=== PATIENT | female | born 1950 | race Caucasian/White ===

== ENCOUNTER → 2016-08-11 | Outpatient (CLI) | payer MEDICARE ==
--- NOTE | 2016-08-11 12:31 | REP ---
Clinical: Lower back pain. Technique: AP, lateral, bilateral oblique, and coned-down views. Findings: Alignment and lordosis is maintained. Moderate multilevel degenerative changes include anterior spurring/osteophyte formation, endplate sclerosis with minimal disc space narrowing and hypertrophic facet changes. There is no evidence for acute fracture / compression as a or subluxation. No evidence for spondylolysis or spondylolisthesis. Impression: Moderate multilevel degenerative changes. Signed by Andrew Moreira MD 08/11/2016 12:24 P
== END ==
LOC: M ADAMS 11:52
PROVIDERS: ATTEND Physician Assistant Medical
DX: M54.5 Low back pain (principal)

== ENCOUNTER → 2016-09-12 | Outpatient (REF) | payer MEDICARE ==
[2016-09-12 12:25] LABS: MEAN CORPUSCULAR HEMOGLOBIN 32.6 pg (27.0-33.0); MEAN CORPUSCULAR HGB CONC 34.4 g/dl (32.0-36.5); MEAN CORPUSCULAR VOLUME 94.7 fl (80.0-96.0); RED CELL DISTRIBUTION WIDTH 12.9 % (11.5-14.5)
[2016-09-12 12:58] LABS: ALBUMIN 3.9 GM/DL (3.2-5.2); ALBUMIN/GLOBULIN RATIO 1.22 (1.00-1.93); ALKALINE PHOSPHATASE 102 U/L (45-117); ALT/SGPT 60 U/L (12-78); ANION GAP 9 MEQ/L (8-16); AST/SGOT 29 U/L (15-37); BILIRUBIN,TOTAL 0.5 MG/DL (0.2-1.0); BLOOD UREA NITROGEN 17 MG/DL (7-18); CARBON DIOXIDE LEVEL 27 MEQ/L (21-32); CHLORIDE LEVEL 108 MEQ/L (98-107); CHOLESTEROL LEVEL 156 MG/DL (<200); CREATININE FOR GFR 0.84 MG/DL (0.55-1.02); GLOMERULAR FILTRATION RATE > 60.0 (>45); GLUCOSE, FASTING 130 MG/DL (80-110); POTASSIUM SERUM 4.2 MEQ/L (3.5-5.1); SODIUM LEVEL 144 MEQ/L (136-145); TOTAL PROTEIN 7.1 GM/DL (6.4-8.2); TRIGLYCERIDES LEVEL 198 MG/DL (<150)
== END ==
LOC: M SFHCADAM 10:02
PROVIDERS: ATTEND Physician Assistant Medical
DX: K21.9 Gastro-esophageal reflux disease without esophagitis (principal); E78.4 Other hyperlipidemia; R73.01 Impaired fasting glucose; E03.9 Hypothyroidism, unspecified; E55.9 Vitamin D deficiency, unspecified

== ENCOUNTER → 2017-05-14 | Outpatient (REF) | payer MEDICARE ==
[2017-05-14 13:49] LABS: BASO # 0.1 10^3/uL (0.0-0.2); BASO % 0.9 % (0.0-1.0); EOS # 0.2 10^3/uL (0.0-0.50); EOS % 3.1 % (0.0-3.0); IMMATURE GRANULOCYTE % 0.5 % (0-0); LYMPH % 40.7 % (24.0-44.0); MEAN CORPUSCULAR HEMOGLOBIN 31.6 pg (27.0-33.0); MEAN CORPUSCULAR HGB CONC 33.1 g/dl (32.0-36.5); MEAN CORPUSCULAR VOLUME 95.5 fl (80.0-96.0); MONO # 0.8 10^3/uL (0.0-0.8); MONO % 10.9 % (0.0-5.0); NEUTROPHILS # 3.3 10^3/uL (1.8-7.7); NEUTROPHILS % 43.9 % (36.0-66.0); PLATELET COUNT, AUTOMATED 245 10^3/uL (150-450); RED CELL DISTRIBUTION WIDTH 13.2 % (11.5-14.5); WHITE BLOOD COUNT 7.4 10^3/uL (4.0-10.0)
[2017-05-14 14:52] LABS: ALBUMIN 3.8 GM/DL (3.2-5.2); ALBUMIN/GLOBULIN RATIO 1.12 (1.00-1.93); ALKALINE PHOSPHATASE 130 U/L (45-117); ALT/SGPT 78 U/L (12-78); ANION GAP 10 MEQ/L (8-16); AST/SGOT 44 U/L (15-37); BILIRUBIN,TOTAL 0.5 MG/DL (0.2-1.0); BLOOD UREA NITROGEN 18 MG/DL (7-18); CARBON DIOXIDE LEVEL 27 MEQ/L (21-32); CHLORIDE LEVEL 106 MEQ/L (98-107); CHOLESTEROL LEVEL 160 MG/DL (<200); CREATININE FOR GFR 0.77 MG/DL (0.55-1.02); FREE T4 0.95 NG/DL (0.76-1.46); GLOMERULAR FILTRATION RATE > 60.0 (>45); GLUCOSE, FASTING 145 MG/DL (80-110); POTASSIUM SERUM 4.1 MEQ/L (3.5-5.1); SODIUM LEVEL 143 MEQ/L (136-145); TOTAL PROTEIN 7.2 GM/DL (6.4-8.2); TRIGLYCERIDES LEVEL 143 MG/DL (<150)
== END ==
LOC: M SFHCADAM 10:47
PROVIDERS: ATTEND Physician Assistant Medical
DX: I25.10 Atherosclerotic heart disease of native coronary artery without angina pectoris (principal); E78.4 Other hyperlipidemia; K21.9 Gastro-esophageal reflux disease without esophagitis; E55.9 Vitamin D deficiency, unspecified

== ENCOUNTER → 2017-08-21 | Outpatient (REF) | payer MEDICARE ==
[2017-08-21 19:56] LABS: BASO # 0.1 10^3/uL (0.0-0.2); BASO % 0.8 % (0.0-1.0); EOS # 0.2 10^3/uL (0.0-0.50); EOS % 2.9 % (0.0-3.0); HEMOGLOBIN 14.7 g/dl (12.0-16.0); IMMATURE GRANULOCYTE # 0.1 10^3/uL (0-0); IMMATURE GRANULOCYTE % 0.7 % (0-0); LYMPH # 2.8 10^3/uL (1.5-4.5); LYMPH % 38.4 % (24.0-44.0); MEAN CORPUSCULAR HEMOGLOBIN 31.1 pg (27.0-33.0); MEAN CORPUSCULAR VOLUME 97.3 fl (80.0-96.0); MONO # 0.7 10^3/uL (0.0-0.8); MONO % 9.7 % (0.0-5.0); NEUTROPHILS # 3.5 10^3/uL (1.8-7.7); NEUTROPHILS % 47.5 % (36.0-66.0); PLATELET COUNT, AUTOMATED 259 10^3/uL (150-450); RED BLOOD COUNT 4.73 10^6/uL (4.00-5.40); RED CELL DISTRIBUTION WIDTH 12.9 % (11.5-14.5); WHITE BLOOD COUNT 7.3 10^3/uL (4.0-10.0)
[2017-08-21 20:51] LABS: TOTAL 25(OH) VITAMIN D 19.9 NG/ML (30.0-100.0)
[2017-08-21 20:52] LABS: ALBUMIN 4.2 GM/DL (3.2-5.2); ALBUMIN/GLOBULIN RATIO 1.27 (1.00-1.93); ALKALINE PHOSPHATASE 141 U/L (45-117); ALT/SGPT 79 U/L (12-78); ANION GAP 7 MEQ/L (8-16); AST/SGOT 42 U/L (7-37); BILIRUBIN,TOTAL 0.7 MG/DL (0.2-1.0); BLOOD UREA NITROGEN 15 MG/DL (7-18); CALCIUM LEVEL 9.1 MG/DL (8.8-10.2); CARBON DIOXIDE LEVEL 30 MEQ/L (21-32); CHLORIDE LEVEL 103 MEQ/L (98-107); CHOLESTEROL LEVEL 143 MG/DL (<200); CREATININE FOR GFR 0.93 MG/DL (0.55-1.02); GLOMERULAR FILTRATION RATE > 60.0 (>45); GLUCOSE, FASTING 155 MG/DL (70-100); HDL CHOLESTEROL 44 MG/DL (>40); LDL CHOLESTEROL 56.6 MG/DL (<100); NON-HDL-C 99 MG/DL; POTASSIUM SERUM 4.4 MEQ/L (3.5-5.1); SODIUM LEVEL 140 MEQ/L (136-145); TOTAL PROTEIN 7.5 GM/DL (6.4-8.2); TRIGLYCERIDES LEVEL 212 MG/DL (<150)
[2017-08-21 20:54] LABS: MAU/CREAT RATIO 44.3 MCG/MG (0.0-30.0)
[2017-08-21 21:17] LABS: ESTIMATED AVERAGE GLUCOSE 177 MG/DL (60-110); HEMOGLOBIN A1c 7.8 %
== END ==
LOC: M SFHCADAM 10:35
DX: I10 Essential (primary) hypertension (principal); I25.10 Atherosclerotic heart disease of native coronary artery without angina pectoris; E78.4 Other hyperlipidemia; E03.9 Hypothyroidism, unspecified
CPT/HCPCS: 84443

== ENCOUNTER → 2017-12-16 | Outpatient (REF) | payer MEDICARE ==
[2017-12-16 13:18] LABS: ESTIMATED AVERAGE GLUCOSE 169 MG/DL (60-110); HEMOGLOBIN A1c 7.5 %
[2017-12-16 13:26] LABS: ALBUMIN 3.8 GM/DL (3.2-5.2); ALBUMIN/GLOBULIN RATIO 1.19 (1.00-1.93); ALKALINE PHOSPHATASE 107 U/L (45-117); ALT/SGPT 56 U/L (12-78); ANION GAP 8 MEQ/L (8-16); AST/SGOT 26 U/L (7-37); BILIRUBIN,TOTAL 0.4 MG/DL (0.2-1.0); BLOOD UREA NITROGEN 15 MG/DL (7-18); CARBON DIOXIDE LEVEL 28 MEQ/L (21-32); CHLORIDE LEVEL 108 MEQ/L (98-107); CHOLESTEROL LEVEL 133 MG/DL (<200); CHOLESTEROL RISK RATIO 3.093 (<5); CREATININE FOR GFR 0.81 MG/DL (0.55-1.30); GLOMERULAR FILTRATION RATE > 60.0 (>45); GLUCOSE, FASTING 128 MG/DL (70-100); HDL CHOLESTEROL 43 MG/DL (>40); LDL CHOLESTEROL 52.4 MG/DL (<100); NON-HDL-C 90 MG/DL; POTASSIUM SERUM 4.3 MEQ/L (3.5-5.1); SODIUM LEVEL 144 MEQ/L (136-145); TRIGLYCERIDES LEVEL 188 MG/DL (<150)
[2017-12-16 13:27] LABS: TOTAL 25(OH) VITAMIN D 20.9 NG/ML (30.0-100.0)
== END ==
LOC: M SFHCADAM 07:57
DX: E11.9 Type 2 diabetes mellitus without complications (principal); E55.9 Vitamin D deficiency, unspecified
CPT/HCPCS: 80053

== ENCOUNTER → 2018-04-28 | Outpatient (REF) | payer MEDICARE ==
[2018-04-28 13:30] LABS: ALBUMIN/GLOBULIN RATIO 1.25 (1.00-1.93); ALKALINE PHOSPHATASE 108 U/L (45-117); ALT/SGPT 67 U/L (12-78); ANION GAP 9 MEQ/L (8-16); AST/SGOT 34 U/L (7-37); BILIRUBIN,TOTAL 0.5 MG/DL (0.2-1.0); BLOOD UREA NITROGEN 17 MG/DL (7-18); CALCIUM LEVEL 9.4 MG/DL (8.8-10.2); CARBON DIOXIDE LEVEL 28 MEQ/L (21-32); CHLORIDE LEVEL 106 MEQ/L (98-107); CHOLESTEROL LEVEL 127 MG/DL (<200); CHOLESTEROL RISK RATIO 3.023 (<5); CREATININE FOR GFR 0.84 MG/DL (0.55-1.30); GLOMERULAR FILTRATION RATE > 60.0 (>45); GLUCOSE, FASTING 125 MG/DL (70-100); HDL CHOLESTEROL 42 MG/DL (>40); LDL CHOLESTEROL 55 MG/DL (<100); NON-HDL-C 85 MG/DL; POTASSIUM SERUM 4.8 MEQ/L (3.5-5.1); SODIUM LEVEL 143 MEQ/L (136-145); TOTAL PROTEIN 7.2 GM/DL (6.4-8.2); TRIGLYCERIDES LEVEL 152 MG/DL (<150)
[2018-04-28 13:31] LABS: ESTIMATED AVERAGE GLUCOSE 160 MG/DL (60-110); HEMOGLOBIN A1c 7.2 %
== END ==
LOC: M SFHCADAM 09:51
DX: E11.9 Type 2 diabetes mellitus without complications (principal); E03.9 Hypothyroidism, unspecified
CPT/HCPCS: 84443

== ENCOUNTER → 2018-05-20 | Outpatient (REF) | payer MEDICARE ==
[2018-05-20 19:54] LABS: APPEARANCE, URINE CLEAR (CLEAR); BACTERIA, URINE AUTO 1+ (NEGATIVE); BILIRUBIN, URINE AUTO NEGATIVE (NEGATIVE); BLOOD, URINE BLOOD NEGATIVE (NEGATIVE); COLOR, URINE YELLOW (YELLOW); GLUCOSE, URINE (UA) AUTO NEGATIVE (NEGATIVE); KETONE, URINE AUTO NEGATIVE (NEGATIVE); LEUKOCYTE ESTERASE, URINE AUTO TRACE (NEGATIVE); MUCUS, URINE SMALL (NEGATIVE); NITRITE, URINE AUTO NEGATIVE (NEGATIVE); PROTEIN, URINE AUTO NEGATIVE (NEGATIVE); RBC, URINE AUTO 1 /HPF (0-3); SQUAMOUS EPITHELIAL CELL UR AU 1 /HPF (0-6); UROBILINOGEN, URINE AUTO 0.2 mg/dL (0.0-2.0); WBC, URINE AUTO 3 /HPF (0-3)
== END ==
LOC: M SFHCADAM 19:27
DX: N39.492 Postural (urinary) incontinence (principal)
CPT/HCPCS: 81001

== ENCOUNTER 2018-07-11 16:50 | Emergency (ER) | payer MEDICARE, SELFPAY ==
[2018-07-11] MEDS: DICYCLOMINE 10 MG CAP PO (17:55)
[2018-07-11] MEDS: ONDANSETRON 4MG/2ML VIAL (J2405) IV (17:56)
[2018-07-11] MEDS: ACETAMINOPHEN 325 MG TAB PO (17:56)
[2018-07-11] MEDS: NS 1,000 ML IV (17:56)
[2018-07-11 18:00] LABS: APPEARANCE, URINE CLEAR (CLEAR); BACTERIA, URINE AUTO NEGATIVE (NEGATIVE); BILIRUBIN, URINE AUTO NEGATIVE (NEGATIVE); BLOOD, URINE BLOOD 1+ (NEGATIVE); COLOR, URINE YELLOW (YELLOW); GLUCOSE, URINE (UA) AUTO NEGATIVE (NEGATIVE); KETONE, URINE AUTO 1+ mg/dL (NEGATIVE); LEUKOCYTE ESTERASE, URINE AUTO NEGATIVE (NEGATIVE); NITRITE, URINE AUTO NEGATIVE (NEGATIVE); PROTEIN, URINE AUTO NEGATIVE (NEGATIVE); RBC, URINE AUTO 7 /HPF (0-3); SPECIFIC GRAVITY URINE AUTO 1.021 (1.002-1.035); SQUAMOUS EPITHELIAL CELL UR AU 0 /HPF (0-6); UROBILINOGEN, URINE AUTO 0.2 mg/dL (0.0-2.0); WBC, URINE AUTO 1 /HPF (0-3)
[2018-07-11 18:15] LABS: BASO # 0.1 10^3/uL (0.0-0.2); BASO % 0.6 % (0.0-1.0); EOS # 0.2 10^3/uL (0.0-0.50); EOS % 1.4 % (0.0-3.0); HEMATOCRIT 42.5 % (36.0-47.0); HEMOGLOBIN 14.3 g/dl (12.0-15.5); IMMATURE GRANULOCYTE % 0.4 % (0-3.0); LYMPH # 3.3 10^3/uL (1.5-4.5); LYMPH % 26.8 % (24.0-44.0); MEAN CORPUSCULAR HEMOGLOBIN 31.3 pg (27.0-33.0); MEAN CORPUSCULAR HGB CONC 33.6 g/dl (32.0-36.5); MONO # 1.4 10^3/uL (0.0-0.8); MONO % 11.3 % (0.0-5.0); NEUTROPHILS # 7.3 10^3/uL (1.8-7.7); NEUTROPHILS % 59.5 % (36.0-66.0); PLATELET COUNT, AUTOMATED 263 10^3/uL (150-450); RED BLOOD COUNT 4.57 10^6/uL (4.00-5.40); RED CELL DISTRIBUTION WIDTH 13.2 % (11.5-14.5); WHITE BLOOD COUNT 12.3 10^3/uL (4.0-10.0)
[2018-07-11 18:24] LABS: ALBUMIN/GLOBULIN RATIO 1.25 (1.00-1.93); ALKALINE PHOSPHATASE 126 U/L (45-117); ALT/SGPT 69 U/L (12-78); ANION GAP 12 MEQ/L (8-16); AST/SGOT 44 U/L (7-37); BILIRUBIN,TOTAL 0.5 MG/DL (0.2-1.0); BLOOD UREA NITROGEN 26 MG/DL (7-18); CALCIUM LEVEL 9.3 MG/DL (8.8-10.2); CARBON DIOXIDE LEVEL 23 MEQ/L (21-32); CHLORIDE LEVEL 106 MEQ/L (98-107); CREATININE FOR GFR 1.53 MG/DL (0.55-1.30); GLOMERULAR FILTRATION RATE 35.8 (>45); GLUCOSE, FASTING 113 MG/DL (70-100); LIPASE 180 U/L (73-393); POTASSIUM SERUM 4.2 MEQ/L (3.5-5.1); SODIUM LEVEL 141 MEQ/L (136-145); TOTAL PROTEIN 7.2 GM/DL (6.4-8.2)
[2018-07-11 19:33] LABS: ESTIMATED AVERAGE GLUCOSE 169 MG/DL (60-110); HEMOGLOBIN A1c 7.5 %
[2018-07-11] MEDS: BACTRIM 160MG/800MG DS TAB PO (19:59)
[2018-07-11] MEDS: TAMSULOSIN 0.4 MG CAP PO (19:59)
== END 2018-07-11 20:15 | disposition home or self-care (01) ==
LOC: M ED 16:50
DX: N20.1 Calculus of ureter (principal); D72.829 Elevated white blood cell count, unspecified; R82.4 Acetonuria; E11.9 Type 2 diabetes mellitus without complications; I10 Essential (primary) hypertension; E78.5 Hyperlipidemia, unspecified; Z79.899 Other long term (current) drug therapy; Z79.84 Long term (current) use of oral hypoglycemic drugs; Z79.82 Long term (current) use of aspirin; Z88.8 Allergy status to other drugs, medicaments and biological substances
CPT/HCPCS: J2405

== ENCOUNTER → 2018-08-04 | Outpatient (REF) | payer MEDICARE ==
[~2018-08-04] MED LIST: AMLO5TAB6 PO; ASPI1TAB PO; BACT800T5 PO; BUPR1TAB53 PO; FLOM0.4C39 PO; LEVO75TA4 PO; METF10004 PO; PANT40TA3 PO; ROSU40TA3 PO; VALS1TAB47 PO
--- NOTE | 2018-08-05 03:19 | REP ---
Clinical: Preoperative assessment for kidney stone . Comparison: 10/06/2015 . Technique: PA and lateral. Findings: The mediastinum and cardiac silhouette are normal. The lung miller are clear and without acute consolidation, effusion, or pneumothorax. The skeletal structures are intact and normal. Impression: 1. No acute cardiopulmonary process. Electronically Signed by Andrew Moreira MD 08/05/2018 03:10 A
== END ==
LOC: M ADAMS 10:09
PROVIDERS: ATTEND Nurse Practitioner Family
DX: Z01.818 Encounter for other preprocedural examination (principal); N20.0 Calculus of kidney

== ENCOUNTER → 2018-08-04 | Outpatient (REF) | payer MEDICARE ==
[2018-08-04 13:00] LABS: BLOOD UREA NITROGEN 16 MG/DL (7-18); CALCIUM LEVEL 9.4 MG/DL (8.8-10.2); CARBON DIOXIDE LEVEL 31 MEQ/L (21-32); CHLORIDE LEVEL 103 MEQ/L (98-107); CREATININE FOR GFR 0.97 MG/DL (0.55-1.30); GLOMERULAR FILTRATION RATE > 60.0 (>45); GLUCOSE, FASTING 111 MG/DL (70-100); POTASSIUM SERUM 4.5 MEQ/L (3.5-5.1); SODIUM LEVEL 140 MEQ/L (136-145)
[2018-08-04 13:01] LABS: APPEARANCE, URINE CLEAR (CLEAR); BACTERIA, URINE AUTO NEGATIVE (NEGATIVE); BILIRUBIN, URINE AUTO NEGATIVE (NEGATIVE); BLOOD, URINE BLOOD NEGATIVE (NEGATIVE); COLOR, URINE YELLOW (YELLOW); GLUCOSE, URINE (UA) AUTO NEGATIVE (NEGATIVE); KETONE, URINE AUTO NEGATIVE (NEGATIVE); LEUKOCYTE ESTERASE, URINE AUTO TRACE (NEGATIVE); MUCUS, URINE SMALL (NEGATIVE); NITRITE, URINE AUTO NEGATIVE (NEGATIVE); PROTEIN, URINE AUTO NEGATIVE (NEGATIVE); RBC, URINE AUTO 0 /HPF (0-3); SPECIFIC GRAVITY URINE AUTO 1.012 (1.002-1.035); SQUAMOUS EPITHELIAL CELL UR AU 0 /HPF (0-6); UROBILINOGEN, URINE AUTO 0.2 mg/dL (0.0-2.0); WBC, URINE AUTO 4 /HPF (0-3)
[2018-08-04 13:08] LABS: HEMOGLOBIN 13.7 g/dl (12.0-15.5); MEAN CORPUSCULAR HEMOGLOBIN 31.1 pg (27.0-33.0); MEAN CORPUSCULAR HGB CONC 32.6 g/dl (32.0-36.5); MEAN CORPUSCULAR VOLUME 95.2 fl (80.0-96.0); PLATELET COUNT, AUTOMATED 273 10^3/uL (150-450); RED BLOOD COUNT 4.41 10^6/uL (4.00-5.40); WHITE BLOOD COUNT 8.7 10^3/uL (4.0-10.0)
[2018-08-04 13:20] LABS: INR 0.96; PROTHROMBIN TIME 12.9 SECONDS (12.1-14.4)
[2018-08-04 13:21] LABS: PARTIAL THROMBOPLASTIN TIME 39.1 SECONDS (25.4-37.6)
== END ==
LOC: M LABSMT 10:35 → M LABDRWAD 10:37
PROVIDERS: ATTEND Nurse Practitioner Family
DX: Z01.818 Encounter for other preprocedural examination (principal); N20.0 Calculus of kidney

== ENCOUNTER 2018-08-11 07:19 | Day surgery (SDC) | payer MEDICARE ==
[~2018-08-11] VITALS: Ht 165.1 cm; Wt 94.7 kg
[2018-08-11] MEDS ORDERED: PROPOFOL 200 MG/20 ML VIAL As Ordered ONE (08:00)
[2018-08-11] MEDS ORDERED: METOCLOPRAMIDE INJ 10MG/2ML VIAL (J2765) As Ordered ONE (08:00)
[2018-08-11] MEDS ORDERED: LIDOCAINE 2% INJ 100 MG/5 ML SDV (FOR ANES.) As Ordered ONE (08:00)
[2018-08-11] MEDS ORDERED: ONDANSETRON 4MG/2ML VIAL (J2405) As Ordered ONE (08:00)
[2018-08-11] MEDS ORDERED: MIDAZOLAM INJ 2 MG/2 ML VIAL (J2250) As Ordered ONE (08:01)
[2018-08-11] MEDS ORDERED: fentaNYL 100 MCG/2 ML INJECTION (J3010) As Ordered ONE (08:01)
[2018-08-11] MEDS ORDERED: ceFAZolin 2 GM/D5W 50 ML IV BAG (J0690 PER 500MG) As Ordered ONE (08:02)
[2018-08-11] MEDS ORDERED: LR 1,000 ML IV ONE (09:15)
[2018-08-11] MEDS ORDERED: CONRAY-60 60% 50ML VIAL (Q9961) As Ordered ONE ×2 (09:24→10:17)
[2018-08-11] MEDS: LIDOCAINE 2% 5ML JELLY UROJET As Ordered ONE ×2 (10:13→11:32)
[2018-08-11] MEDS ORDERED: BACT800T5 PO (11:20)
[2018-08-11] MEDS ORDERED: FLOM0.4C39 PO (11:20)
[2018-08-11] MEDS ORDERED: TYLE500T78 PO (11:20)
--- NOTE | 2018-08-11 11:31 | REP ---
Retrograde pyelogram: 58 views. History: Nephrolithiasis. 57 seconds of fluoroscopy time is reported. Findings: A sequence of 58 last image hold fluoroscopically obtained spot radiographs of the abdomen document bilateral ureteral cannulation and contrast injection and double pigtail ureteral stenting on the left. Electronically Signed by Fuentes Tom MD 08/11/2018 08:12 P
[2018-08-11] MEDS ORDERED: LR 1,000 ML IV SCH (11:45)
[2018-08-11] MEDS ORDERED: ONDANSETRON 4MG/2ML VIAL (J2405) IV PRN (11:45)
--- NOTE | 2018-08-11 11:46 | ROOPDOC ---
[facility] Report Of Operation Report of Operation DATE OF PROCEDURE: 08/11/18 PREPROCEDURE DIAGNOSES:left ureteral stone, left lower pole stone, right lower pole stone POSTPROCEDURE DIAGNOSES: same. PROCEDURE: left retrograde pyelogram, balloon dilation, semi rigid ureteroscopy, laser lithotripsy, flexible ureteroscopy, stone basketing, stent placement, colposcopy SURGEON: Jimmie Garcia MD MPH KRZYSZTOF ANESTHESIA: GET (Dr. Gomez). ESTIMATED BLOOD LOSS: Approximately <10 mL. COMPLICATIONS: none. REMARKS/FINDINGS: 1. left ureteral stone distal ureter and left lower pole on retrograde, sent for stone analysis 2. left renal clot 3. stent 6f [id number] stent 4. trigonitis 5. normal retrograde on the right 6. normal colposcopy (cervix not present; cuff scar seen) DESCRIPTION OF PROCEDURE: After informed consent pt was taken to the operating room where routine time out was performed for all care stakeholders, who were in agreement. The patient was placed in lithotomy position, prepped and draped and 21 f cystoscope was introduced into the bladder. The open ended ureteral catheter was placed into the ureter retrograde revealed findings above. The motion hybrid wire was placed up the ureter into the renal pelvis. The 15f x 10cm balloon dilator was placed over the wire to distend the distal ureter. After desufflating the balloon 5min later then the semi rigid ureteroscope was introduced along side the wire up the ureter and the 0 tip nitinol stone basket was introduced once reached the distal stone and removed for stone analysis. A second motion guide wire was placed up the semi rigid scope after completing retrograde pyelogram. The ureteral access sheath was placed up the ureter over a 2nd motion wire along side of the safety wire already in place. A flexible ureteroscope to be introduce up the access sheath. A 200 laser fiber was introduced once uret eroscope reached the lower pole stone. The laser was set to 10/20 rivera (1/2j and 10hz). Once the stone was broken to smaller pieces, the nitinol 0 tip basket was used to remove stone fragments which were added to the stone distally as it appeared to be the same. The remaining stone in the access sheath were irrigated out and stones were sent for stone analysis. A new retrograde was performed using a open ended catheter and the stent 6f x 22-30cm was placed over the wire, and secured to his left inner thigh using Mastisol, steri strips and Tegaderm. The contralateral retrograde pyelogram by irrigating contrast into the right ure teral meatus. The 21f cystoscope was used to perform colposcopy which completed by introducing the scope and sinching the vaginal introitus manually with gauze around the scope. Findings as above. The patient tolerated the procedure well and was taken to the recovery room in excellent condition. Jimmie Garcia MD MPH KRZYSZTOF. Jimmie Garcia MD Aug 11, 2018 11:46
[2018-08-11] MEDS: PERCOCET 5MG/325MG TAB PO PRN ×2 (11:55→12:40)
[2018-08-11 13:22] VITALS: BP 145/69
[2018-08-16 00:06] LABS: COMMENT Note: (.); Ca Ox Monohydrate 86 % (.)
== END 2018-08-11 13:27 | disposition home or self-care (01) ==
LOC: M SDC 07:19
PROVIDERS: ATTEND Urology Pediatric Urology
DX: N20.2 Calculus of kidney with calculus of ureter (principal); R32 Unspecified urinary incontinence; I25.2 Old myocardial infarction; E11.9 Type 2 diabetes mellitus without complications; E03.9 Hypothyroidism, unspecified; K21.9 Gastro-esophageal reflux disease without esophagitis; R51 Headache; G47.30 Sleep apnea, unspecified; Z88.8 Allergy status to other drugs, medicaments and biological substances; Z79.899 Other long term (current) drug therapy; Z79.82 Long term (current) use of aspirin; Z79.84 Long term (current) use of oral hypoglycemic drugs; Z90.710 Acquired absence of both cervix and uterus; Z95.5 Presence of coronary angioplasty implant and graft
CPT/HCPCS: 52341; 52356; 57420; 74420; 82360; 88108; 88300; C1769; C1894; C2617; J0690; J2250; J2405; J2765; J3010; Q9961

== ENCOUNTER → 2018-08-19 | Outpatient (CLI) | payer MEDICARE ==
[~2018-08-19] MED LIST changes: +TYLE500T78 PO
[2018-08-19 12:41] LABS: IONIZED CALCIUM 4.7 MG/DL (4.5-5.3)
[2018-08-19 13:19] LABS: BLOOD UREA NITROGEN 17 MG/DL (7-18); CALCIUM LEVEL 9.1 MG/DL (8.8-10.2); CARBON DIOXIDE LEVEL 27 MEQ/L (21-32); CHLORIDE LEVEL 105 MEQ/L (98-107); CREATININE FOR GFR 0.86 MG/DL (0.55-1.30); GLOMERULAR FILTRATION RATE > 60.0 (>45); GLUCOSE, FASTING 176 MG/DL (70-100); MAGNESIUM LEVEL 1.9 MG/DL (1.8-2.4); PHOSPHORUS LEVEL 3.3 MG/DL (2.5-4.9); SODIUM LEVEL 140 MEQ/L (136-145); URIC ACID 3.4 MG/DL (2.6-6.0)
[2018-08-19 13:30] LABS: PTH INTACT 40.7 PG/ML (18.5-88.0)
--- NOTE | 2018-08-19 13:36 | REP ---
KUB: Two views presented. HISTORY: Abdomen pain. FINDINGS: A double pigtail left-sided ureteral stent is noted in place. Bowel gas pattern is unremarkable. Psoas margins and flank stripes are intact. No mass, organomegaly, or obstruction seen. Tiny calcific opacities are seen, one superimposed on each kidney. IMPRESSION: Normal bowel gas pattern. Left sided ureteral stent in place. There are tiny calcific opacities projecting over the lower pole of each kidney, one on each side. Electronically Signed by Fuentes Tom MD 08/19/2018 05:34 P
== END ==
LOC: M ADAMS 10:28
PROVIDERS: ATTEND Urology Pediatric Urology
DX: N20.0 Calculus of kidney (principal); Z96.0 Presence of urogenital implants

== ENCOUNTER → 2018-11-11 | Outpatient (CLI) | payer MEDICARE ==
[~2018-11-11] MED LIST changes: -ASPI1TAB PO; +ASPI81TA26 PO; -VALS1TAB47 PO; +VALS1TAB67 PO
--- NOTE | 2018-11-11 16:42 | REP ---
HISTORY: Clinical constipation. COMPARISON: None. FINDINGS: KUB shows the intestinal gas pattern to be nonspecific. The organ silhouettes insofar as delineated are unremarkable. There is no evidence of free intraperitoneal air. The stool pattern is unremarkable. IMPRESSION: Nonspecific. Electronically Signed by Ashu Salamanca DO 11/12/2018 12:03 P
== END ==
LOC: M SMT 15:40
PROVIDERS: ATTEND Nurse Practitioner Family
DX: N20.0 Calculus of kidney (principal)
CPT/HCPCS: 74018; G0463

== ENCOUNTER → 2019-01-23 | Outpatient (REF) | payer MEDICARE ==
[2019-01-23 14:31] LABS: BASO # 0.1 10^3/uL (0.0-0.2); BASO % 1.1 % (0.0-1.0); EOS # 0.3 10^3/uL (0.0-0.50); HEMATOCRIT 43.7 % (36.0-47.0); HEMOGLOBIN 14.1 g/dl (12.0-15.5); LYMPH % 35.6 % (24.0-44.0); MEAN CORPUSCULAR HEMOGLOBIN 31.7 pg (27.0-33.0); MEAN CORPUSCULAR HGB CONC 32.3 g/dl (32.0-36.5); MEAN CORPUSCULAR VOLUME 98.2 fl (80.0-96.0); MONO # 0.9 10^3/uL (0.0-0.8); MONO % 10.5 % (0.0-5.0); NEUTROPHILS # 4.1 10^3/uL (1.8-7.7); NEUTROPHILS % 48.3 % (36.0-66.0); PLATELET COUNT, AUTOMATED 282 10^3/uL (150-450); RED BLOOD COUNT 4.45 10^6/uL (4.00-5.40); WHITE BLOOD COUNT 8.5 10^3/uL (4.0-10.0)
[2019-01-23 15:04] LABS: ALBUMIN 3.8 GM/DL (3.2-5.2); ALT/SGPT 61 U/L (12-78); BILIRUBIN,TOTAL 0.5 MG/DL (0.2-1.0); BLOOD UREA NITROGEN 15 MG/DL (7-18); CALCIUM LEVEL 8.9 MG/DL (8.8-10.2); CARBON DIOXIDE LEVEL 30 MEQ/L (21-32); CHLORIDE LEVEL 105 MEQ/L (98-107); CHOLESTEROL LEVEL 126 MG/DL (<200); CHOLESTEROL RISK RATIO 2.625 (<5); CREATININE FOR GFR 0.84 MG/DL (0.55-1.30); FREE T4 1.07 NG/DL (0.76-1.46); GLOMERULAR FILTRATION RATE > 60.0 (>39); GLUCOSE, FASTING 109 MG/DL (70-100); HDL CHOLESTEROL 48 MG/DL (>40); LDL CHOLESTEROL 47 MG/DL (<100); MALB URINE SIEMENS 16.1 MG/L; NON-HDL-C 78 MG/DL; POTASSIUM SERUM 4.6 MEQ/L (3.5-5.1); SODIUM LEVEL 142 MEQ/L (136-145); TOTAL PROTEIN 7.1 GM/DL (6.4-8.2); TRIGLYCERIDES LEVEL 153 MG/DL (<150)
[2019-01-23 15:10] LABS: HEMOGLOBIN A1c 7.2 %
== END ==
LOC: M SFHCADAM 11:00
PROVIDERS: ATTEND Physician Assistant Medical
DX: I25.10 Atherosclerotic heart disease of native coronary artery without angina pectoris (principal); E78.49 Other hyperlipidemia; E03.9 Hypothyroidism, unspecified; E55.9 Vitamin D deficiency, unspecified; Z79.899 Other long term (current) drug therapy

== ENCOUNTER → 2019-07-30 | Outpatient (REF) | payer MEDICARE ==
[~2019-07-30] MED LIST changes: -ROSU40TA3 PO; +ROSU40TA4 PO
[2019-07-30 16:08] LABS: BASO # 0.1 10^3/uL (0.0-0.2); BASO % 0.7 % (0.0-1.0); EOS # 0.2 10^3/uL (0.0-0.5); EOS % 2.5 % (0.0-3.0); HEMATOCRIT 44.8 % (36.0-47.0); HEMOGLOBIN 14.1 g/dl (12.0-15.5); LYMPH # 3.2 10^3/uL (1.5-5.0); LYMPH % 35.3 % (24.0-44.0); MEAN CORPUSCULAR HEMOGLOBIN 30.5 pg (27.0-33.0); MEAN CORPUSCULAR HGB CONC 31.5 g/dl (32.0-36.5); MEAN CORPUSCULAR VOLUME 96.8 fl (80.0-96.0); MONO # 0.8 10^3/uL (0.0-0.8); MONO % 8.5 % (0.0-5.0); NEUTROPHILS # 4.8 10^3/uL (1.5-8.5); NEUTROPHILS % 52.7 % (36.0-66.0); PLATELET COUNT, AUTOMATED 275 10^3/uL (150-450); RED BLOOD COUNT 4.63 10^6/uL (4.00-5.40)
[2019-07-30 16:26] LABS: ALBUMIN 3.6 GM/DL (3.2-5.2); ALT/SGPT 53 U/L (12-78); BILIRUBIN,TOTAL 0.4 MG/DL (0.2-1.0); BLOOD UREA NITROGEN 20 MG/DL (7-18); CALCIUM LEVEL 9.9 MG/DL (8.8-10.2); CARBON DIOXIDE LEVEL 28 MEQ/L (21-32); CHLORIDE LEVEL 105 MEQ/L (98-107); CHOLESTEROL LEVEL 133 MG/DL (<200); CHOLESTEROL RISK RATIO 2.891 (<5); CREATININE FOR GFR 0.88 MG/DL (0.55-1.30); GLOMERULAR FILTRATION RATE > 60.0 (>39); GLUCOSE, FASTING 215 MG/DL (70-100); HDL CHOLESTEROL 46 MG/DL (>40); LDL CHOLESTEROL 59 MG/DL (<100); NON-HDL-C 87 MG/DL; POTASSIUM SERUM 4.1 MEQ/L (3.5-5.1); SODIUM LEVEL 141 MEQ/L (136-145); TRIGLYCERIDES LEVEL 142 MG/DL (<150)
[2019-07-30 16:41] LABS: TOTAL 25(OH) VITAMIN D 19.2 NG/ML (30.0-100.0)
[2019-07-30 16:48] LABS: HEMOGLOBIN A1c 7.1 %
== END ==
LOC: M SFHCADAM 13:09
PROVIDERS: ATTEND Physician Assistant Medical
DX: I25.10 Atherosclerotic heart disease of native coronary artery without angina pectoris (principal); E11.9 Type 2 diabetes mellitus without complications; E78.2 Mixed hyperlipidemia; E03.9 Hypothyroidism, unspecified; E55.9 Vitamin D deficiency, unspecified

== ENCOUNTER → 2019-08-12 | Outpatient (REF) | payer MEDICARE ==
[2019-08-12 17:27] LABS: AMORPHOUS SEDIMENT SMALL (NEGATIVE); APPEARANCE, URINE TURBID (CLEAR); BACTERIA, URINE AUTO NEGATIVE (NEGATIVE); BILIRUBIN, URINE AUTO NEGATIVE (NEGATIVE); BLOOD, URINE BLOOD NEGATIVE (NEGATIVE); CALCIUM OXALATE CRYSTALS LARGE; COLOR, URINE AMBER (YELLOW); GLUCOSE, URINE (UA) AUTO NEGATIVE (NEGATIVE); KETONE, URINE AUTO NEGATIVE (NEGATIVE); LEUKOCYTE ESTERASE, URINE AUTO TRACE (NEGATIVE); MUCUS, URINE SMALL (NEGATIVE); NITRITE, URINE AUTO NEGATIVE (NEGATIVE); PROTEIN, URINE AUTO NEGATIVE (NEGATIVE); RBC, URINE AUTO 2 /HPF (0-3); SQUAMOUS EPITHELIAL CELL UR AU 0 /HPF (0-6); UROBILINOGEN, URINE AUTO 0.2 mg/dL (0.0-2.0); WBC, URINE AUTO 3 /HPF (0-3)
== END ==
LOC: M SMT 16:52
PROVIDERS: ATTEND Nurse Practitioner Family
DX: R32 Unspecified urinary incontinence (principal)
CPT/HCPCS: 51798; 81001; 87086; G0463

== ENCOUNTER → 2019-08-19 | Outpatient (CLI) | payer MEDICARE ==
--- NOTE | 2019-08-19 17:34 | REP ---
Ultrasound for renal calculi: The right kidney measures 10.2 x 5.5 x 4.5 cm. The left kidney measures 10.3 x 4.8 x 5.9 cm. Renal cortical echogenicity is normal bilaterally. There is no hydronephrosis on the right or the left. There are no solid or cystic renal masses. There are several echogenic foci in the lower pole of the right kidney, compatible with renal calculi. There is a 4 mm echogenic focus in the lower pole of the left kidney compatible with a renal calculus. Impression: Bilateral nonobstructive renal calculi as described. Electronically Signed by Yossi Leon MD 08/19/2019 05:25 P
--- NOTE | 2019-08-19 17:35 | REP ---
The bladder ultrasound: The distended urinary bladder contains 198 ml of fluid. The postvoid bladder contains 41 ml of fluid. The postvoid residual is 21%. No bladder wall masses or cysts identified. Electronically Signed by Yossi Leon MD 08/19/2019 05:26 P
== END ==
LOC: M RAD 13:01
PROVIDERS: ATTEND Nurse Practitioner Family
DX: N20.0 Calculus of kidney (principal)

== ENCOUNTER → 2019-08-24 | Outpatient (CLI) | payer MEDICARE ==
--- NOTE | 2019-08-24 18:16 | REP ---
LEFT ANKLE, FOUR VIEWS: Four views of the left ankle are performed. No fracture or dislocation is seen. The ankle mortise is anatomic. Moderate sized inferior calcaneal spur is seen. IMPRESSION: Moderate inferior calcaneal spurring. Electronically Signed by Yossi Negro MD 08/26/2019 12:12 P
== END ==
LOC: M ADAMS 17:34
PROVIDERS: ATTEND Physician Assistant
DX: M77.32 Calcaneal spur, left foot (principal)

== ENCOUNTER → 2019-10-09 | Outpatient (CLI) | payer MEDICARE ==
--- NOTE | 2019-10-09 14:56 | REP ---
REASON FOR EXAM: History of renal calculi. COMPARISON: 08/19/2018 The double pigtail catheter is seen previously on the left has been removed. The intestinal gas pattern is nonspecific. The organ silhouettes, for the most part are obscured by intestinal content. Small renal calculi cannot be ruled out. There is a tiny calcification seen in the interpolar region of the left kidney, unchanged. There is no change in the osseous structures. IMPRESSION: Findings and limitations as described above. Electronically Signed by Ashu Salamanca DO 10/09/2019 03:43 P
== END ==
LOC: M ADAMS 13:01
PROVIDERS: ATTEND Nurse Practitioner Family
DX: N20.0 Calculus of kidney (principal)

== ENCOUNTER → 2020-01-22 | Outpatient (CLI) | payer MEDICARE ==
--- NOTE | 2020-01-22 16:21 | REP ---
Right hip: Two views. History: Low back pain. Findings: AP and frog-leg views of the right hip demonstrate smooth rounded femoral head and intact hip joint space. Periarticular soft tissues are unremarkable. There is minimal superior acetabular spurring. No erosive changes seen. Impression: Minimal osteoarthritic spurring. Otherwise negative. Electronically Signed by Fuentes Tom MD 01/22/2020 04:13 P
--- NOTE | 2020-01-22 16:24 | REP ---
Lumbar spine series: Six views. History: Low back pain. Comparison study: August 11, 2016. Findings: Lumbar vertebral body heights are preserved. Alignment is normal. There is no evidence of spondylolysis or spondylolisthesis. Degenerative disc narrowing is seen at L3-4 L2-3 and L1-2. Vascular calcifications noted in a normal caliber aorta. Psoas margins are symmetric. There is minimal sclerosis of the SI joints bilaterally unchanged. Impression: Degenerative spondylosis changes. Findings are essentially unchanged from August 11, 2016. No acute abnormality. Electronically Signed by Fuentes Tom MD 01/22/2020 04:16 P
--- NOTE | 2020-01-23 08:01 | REP ---
RIGHT KNEE SERIES: Five views. HISTORY: Pain in the right knee. FINDINGS: Five views right knee demonstrate mild medial compartment osteoarthritic narrowing and spur formation. There is patellofemoral spurring. There is non-articular spurring on the superior pole patella at the quadriceps tendon insertion consistent with chronic tendonitis as well. There is diffuse osteopenia. IMPRESSION: Medial and patellofemoral compartment osteoarthritis. Quadriceps tendon insertion spurring on the patella. Osteopenia. Electronically Signed by Fuentes Tom MD 01/24/2020 06:17 P
== END ==
LOC: M ADAMS 15:41
PROVIDERS: ATTEND Nurse Practitioner Family
DX: M17.11 Unilateral primary osteoarthritis, right knee (principal); M47.817 Spondylosis without myelopathy or radiculopathy, lumbosacral region

== ENCOUNTER → 2020-04-11 | Outpatient (CLI) | payer MEDICARE ==
[~2020-04-11] MED LIST changes: +AMLO1TAB24 PO; -AMLO5TAB6 PO; +PANT40TA29 PO; -PANT40TA3 PO
--- NOTE | 2020-04-26 15:21 | REP ---
KUB: SINGLE VIEW HISTORY: Urinary incontinence. COMPARISON: KUB study from 10/09/2019. FINDINGS: Supine view of the abdomen demonstrates a normal bowel gas pattern. There is a curvilinear calcific density projecting at the lower pole of the left kidney, which could be vascular or intrarenal nephrolithiasis. It measures 5 mm in greatest diameter and is felt to be essentially unchanged. No other urinary tract calculus is appreciated. Psoas margins are symmetric. No bony abnormality. IMPRESSION: Curvilinear calcification superimposed on the lower pole of the left kidney most likely vasculature. No other urinary tract calculus seen. Normal gas pattern. MTDD
== END ==
LOC: M ADAMS 13:32
PROVIDERS: ATTEND Nurse Practitioner Family
DX: R32 Unspecified urinary incontinence (principal)

== ENCOUNTER → 2020-04-25 | Outpatient (REF) | payer MEDICARE ==
[2020-04-25 18:07] LABS: APPEARANCE, URINE HAZY (CLEAR); BACTERIA, URINE AUTO NEGATIVE (NEGATIVE); BILIRUBIN, URINE AUTO NEGATIVE (NEGATIVE); BLOOD, URINE BLOOD NEGATIVE (NEGATIVE); COLOR, URINE AMBER (YELLOW); GLUCOSE, URINE (UA) AUTO 1+ mg/dL (NEGATIVE); KETONE, URINE AUTO NEGATIVE (NEGATIVE); LEUKOCYTE ESTERASE, URINE AUTO NEGATIVE (NEGATIVE); MUCUS, URINE SMALL (NEGATIVE); NITRITE, URINE AUTO NEGATIVE (NEGATIVE); PROTEIN, URINE AUTO NEGATIVE (NEGATIVE); RBC, URINE AUTO 0 /HPF (0-3); SPECIFIC GRAVITY URINE AUTO 1.019 (1.002-1.035); SQUAMOUS EPITHELIAL CELL UR AU 0 /HPF (0-6); UROBILINOGEN, URINE AUTO 0.2 mg/dL (0.0-2.0); WBC, URINE AUTO 2 /HPF (0-3)
== END ==
LOC: M SMT 17:07
PROVIDERS: ATTEND Nurse Practitioner Family
DX: R39.81 Functional urinary incontinence (principal)

== ENCOUNTER → 2020-07-03 | Outpatient (CLI) | payer SELFPAY | LOC: M LABSMTC 10:52 | PROVIDERS: ATTEND Pediatrics | DX: Z11.59 Encounter for screening for other viral diseases (principal) ==

== ENCOUNTER → 2020-07-04 | Outpatient (REF) | payer MEDICARE ==
[2020-07-04 18:27] LABS: BASO # 0.1 10^3/uL (0.0-0.2); BASO % 0.9 % (0.0-1.0); EOS # 0.2 10^3/uL (0.0-0.5); EOS % 2.5 % (0.0-3.0); HEMATOCRIT 43.1 % (36.0-47.0); HEMOGLOBIN 13.6 g/dl (12.0-15.5); LYMPH # 2.9 10^3/uL (1.5-5.0); LYMPH % 33.2 % (24.0-44.0); MEAN CORPUSCULAR HEMOGLOBIN 30.1 pg (27.0-33.0); MEAN CORPUSCULAR HGB CONC 31.6 g/dl (32.0-36.5); MEAN CORPUSCULAR VOLUME 95.4 fl (80.0-96.0); MONO # 0.9 10^3/uL (0.0-0.8); MONO % 9.8 % (0.0-5.0); NEUTROPHILS # 4.6 10^3/uL (1.5-8.5); PLATELET COUNT, AUTOMATED 277 10^3/uL (150-450); RED BLOOD COUNT 4.52 10^6/uL (4.00-5.40); WHITE BLOOD COUNT 8.7 10^3/uL (4.0-10.0)
[2020-07-04 18:40] LABS: ALBUMIN 3.8 GM/DL (3.2-5.2); ALT/SGPT 71 U/L (12-78); BILIRUBIN,TOTAL 0.4 MG/DL (0.2-1.0); BLOOD UREA NITROGEN 16 MG/DL (7-18); CALCIUM LEVEL 9.7 MG/DL (8.8-10.2); CARBON DIOXIDE LEVEL 28 MEQ/L (21-32); CHLORIDE LEVEL 109 MEQ/L (98-107); CHOLESTEROL LEVEL 124 MG/DL (<200); CREATININE FOR GFR 0.89 MG/DL (0.55-1.30); GLOMERULAR FILTRATION RATE > 60.0 (>39); GLUCOSE, FASTING 156 MG/DL (70-100); HDL CHOLESTEROL 50 MG/DL (>40); LDL CHOLESTEROL 45 MG/DL (<100); NON-HDL-C 74 MG/DL; POTASSIUM SERUM 4.1 MEQ/L (3.5-5.1); SODIUM LEVEL 141 MEQ/L (136-145); TOTAL PROTEIN 7.3 GM/DL (6.4-8.2); TRIGLYCERIDES LEVEL 145 MG/DL (<150)
[2020-07-04 19:03] LABS: MALB URINE SIEMENS 20.6 MG/L; MAU/CREAT RATIO 10.7 MCG/MG (0.0-30.0)
[2020-07-04 19:11] LABS: TOTAL 25(OH) VITAMIN D 27.3 NG/ML (30.0-100.0)
== END ==
LOC: M SFHCADAM 13:37
PROVIDERS: ATTEND Physician Assistant Medical
DX: I25.10 Atherosclerotic heart disease of native coronary artery without angina pectoris (principal); E11.9 Type 2 diabetes mellitus without complications; E03.9 Hypothyroidism, unspecified; E55.9 Vitamin D deficiency, unspecified; E78.2 Mixed hyperlipidemia
CPT/HCPCS: 80053; 80061; 82043; 82306; 84443; 85025; G0463

== ENCOUNTER → 2020-09-14 | Outpatient (REF) | payer MEDICARE ==
[2020-09-14 13:22] LABS: APPEARANCE, URINE CLEAR (CLEAR); BACTERIA, URINE AUTO NEGATIVE (NEGATIVE); BILIRUBIN, URINE AUTO NEGATIVE (NEGATIVE); BLOOD, URINE BLOOD NEGATIVE (NEGATIVE); CALCIUM OXALATE CRYSTALS SMALL; COLOR, URINE YELLOW (YELLOW); GLUCOSE, URINE (UA) AUTO NEGATIVE (NEGATIVE); KETONE, URINE AUTO NEGATIVE (NEGATIVE); LEUKOCYTE ESTERASE, URINE AUTO NEGATIVE (NEGATIVE); NITRITE, URINE AUTO NEGATIVE (NEGATIVE); PROTEIN, URINE AUTO NEGATIVE (NEGATIVE); RBC, URINE AUTO 0 /HPF (0-3); SPECIFIC GRAVITY URINE AUTO 1.014 (1.002-1.035); SQUAMOUS EPITHELIAL CELL UR AU 0 /HPF (0-6); UROBILINOGEN, URINE AUTO 0.2 mg/dL (0.0-2.0); WBC, URINE AUTO 3 /HPF (0-3)
== END ==
LOC: M SMT 12:43
PROVIDERS: ATTEND Nurse Practitioner Family
DX: R10.9 Unspecified abdominal pain (principal)

== ENCOUNTER 2020-09-21 09:03 | Emergency (ER) | payer MEDICARE ==
[~2020-09-21] VITALS: Ht 165.1 cm; Wt 101.4 kg
[~2020-09-21 09:03] MED LIST changes: -LOSA50TA88
[2020-09-21 09:04] VITALS: BP 154/69
[2020-09-21] MEDS ORDERED: LOSA50TA88 (09:35)
--- OUTSIDE RECORDS SUMMARY | 2020-09-21 09:54 | CCD ---
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 Name Role Phone Kwan Macdonald Unavailable PROBLEMS Type Condition ICD9-CM Code HQB20-IN Code Onset Dates Condition S tatus W/U Status Risk SNOMED Code Notes Problem Vasomotor rhinitis J30.0 Active confirmed 8 586949 Problem Gastro-esophageal reflux disease without esophagitis K21.9 Active confirmed 862316672 Problem Migraine, unspecified, not intractable, without status migrainosus G43.909 Active confirmed 15660071 Problem Major depressive disorder, single episode, unspecified F32.9 Active confirmed 88422731 Problem Morbid (severe) obesity due to excess calories E66 .01 Active confirmed 956383489 Problem Urinary incontinence R32 Active confirmed 055096915 Problem Essential (primary) hypertension I10 Active conf irmed 37800584 Problem Mixed hyperlipidemia E78.2 Active confirmed 337801756 Problem Atherosclerotic heart diseas e of [place] coronary artery without angina pectoris I25.10 Active confirmed 058895365494125 Problem Vitamin D deficiency, unspecified E55.9 Active con firmed 76376528 Problem Hypothyroidism, unspecified E03.9 Active confirmed 21149154 Problem Type 2 diabetes mellitus wit hout complication, without long-term current use of insulin E11.9 Active confirmed 324939664 Problem Kidney stone N20.0 Active confirmed 5022042 7 ALLERGIES Allergen (clinical drug ingredient) Drug/Non Drug Allergy do cumented on EMR Reaction Allergy Type Onset Date Status cholecalciferol Vitamin D(NDC Code:[address]-37) upset stomach Drug Allergy Active fenofibrate Tricor(NDC Code:[address]-91) (FENOFIBRATE) LOW B/P pass out Drug Allergy Active air freshener trouble breathing Non Drug Allergy Active ENCOUNTERS from 1950 to 2020-09-18 Encounter Location Date Provider Diagnosis [facility] [address] [place] [address] Aug Kwan Macdonald IMMUNIZATIONS Vaccine Route Administration Date Status Pneumococcal Adult 0.5mL Pneumovax 23 IM Intramuscular Sep 23 016 Administered TDAP 0.5mL (Boostrix) IM Intramuscular Feb 27, 2016 Administe red Pneumococcal 0.5mL Prevnar 13 IM Intramuscular Mar 16, 2015 A dministered SOCIAL HISTORY Tobacco Use: Social History Observation Description Date Details (start date - stop date) Never Smoker Sex Assigned At : Social History Observation Description Sex Assigned At Unknown Education: Question Answer Notes Level of Education: GED Audit Question Answer Notes Total Score: 0 Interpretation: Alcohol Education Yarsanism: Question Answer Notes Yarsanism NONE Sexual Hx: Question Answer Notes Had sex in the last 12 months (vaginal, oral, or anal)? No Have you ever had an STD? No Drug and Alcohol Question Answer Notes Total Score: 0 Interpretation: No problems reported Alcohol Screening: Question Answer Notes Did you have a drink containing alcohol in the past year? No Points 0 Interpretation Negative BMI Care Goal Follow-Up Question Answer Notes Above Normal BMI Follow-Up Dietary management educatio n, guidance, and counseling, Exercise promotion: stretching, Giving encouragement to exercise Tobacco Use: Question Answer Notes Are you a: never smoker REASON FOR REFERRAL No Information VITAL SIGNS No information MEDICATIONS Medication SIG (Take, Route, Frequency, Duration) Notes Start Da te End Date Status BuPROPion HCl ER (SR) 150 MG 1 tablet Orally Twice a day for 90 Active One touch ultra blue as directed subcutaneously twice daily, E11.9 for 5 day(s) Jul, Active AmLODIPine Besylate 5 MG 1 tablet Orally Once a day for 90 days Active Flomax 0.4 MG 1 capsule Orally Once a day for 30 day(s) Aug, Active Glucometer as directed _ E11.9 for 30 day(s) Jul, Active Chito Aspirin EC Low Dose 81 MG 1 tablet Orally Once a day Active Protonix 40 MG 1 tablet Orally Once a day for 90 days Active Levothyroxine Sodium 75 MCG 1 tablet Orally Once a day for 90 Active Losartan Potassium 50 MG 1 tablet Orally Once a day for 90 Active Crestor 40 MG 1 tablet Orally Once a day for 90 Active Oxybutynin Chloride 5 MG 1 tablet Orally Twice a day for 30 day( s) Jul, Active Cetirizine HCl 10 MG 1 tablet Orally Once a day for 30 day(s) Active Pantoprazole Sodium 40 MG 1 tablet Orally twice daily for 90 days Active Lancets - as directed subcutaneously twice daily, E11.9 fo r 30 day(s) Jul, Active Tolterodine Tartrate 2 MG 1 tablet Orally Twice a day for 30 Active Vitamin B Complex - as directed Orally Active Metformin HCl 1000 MG 1 tablet with meals Orally twice daily for 90 Active Nitroglycerin 0.4 MG 1 tab Sublingual every 5 m as needed for CP, max 3 doses for 10 day(s) May, Active Myrbetriq 50 MG 1 tablet Orally Once a day for 30 Days Sep, Active PROCEDURES No Information RESULTS No Results REASON FOR VISIT CT Scan MEDICAL (GENERAL) HISTORY Type Description Date Medical History Coronary artery disease - s/ p [place] 2006, has refused cardio referral until 05/15, appt to estab 08/27/18 Medical History Hypothyroidism Medical History GERD - EGD 04/2003, EGD rep eated 11/19/14 () - exam was normal Medical History Hypertension Medical History Hyperlipidemia - Lipitor caused muscle a ches Medical History Migraine headaches Medical History Seasonal allergies Medical History Abdominal CT 05/2014 - tiny renal calcul i - no evidence of AAA Medical History Depression Medical History Vit d def - treatment causes illness, re fuses Medical History PEDRO LUIS, refuses to wear CPAP Medical History DM2 - 08/15 Medical History URETERAL STONE WITH HYDRONEPHROSIS Surgical History Total hysterectomy -1987 Surgical History knee surgery-right Surgical History tonsillectomy Surgical History Cardiac cath with stent 2006 Surgical History Colonoscopy, 2002 - [facility], normal, repeated 10/2014 - () - normal, repeat 3 years due to suboptimal prep. Surgical History EGD - 2002 - [facility], mild GERD Surgical History stent removal left side on a string Surgical History ureteroscopy left stent palcement 2018 Surgical History kidney stone 08/2018 Hospitalization History surgery Hospitalization History myocardial infarction x2 Goals Section No Information Health Concerns No Information MEDICAL EQUIPMENT No Information MENTAL STATUS No Information FUNCTIONAL STATUS No Information ASSESSMENTS No Information PLAN OF TREATMENT Medication Medication Name Sig Start Date Stop Date Flomax 0.4 MG 1 capsule Orally Once a day for 30 day(s) Aug Next Appt Details Provider Name:Herbert Mtz, 2020-09-23 08:30:00 AM, [address], [place], [address], Insurance Providers Payer Name Payer Address Payer Phone Insured Name Patient Relati onship to Insured Coverage Start Date Coverage End Date [facility] [id number] [facility] [id number] [id number] GARZA
--- OUTSIDE RECORDS SUMMARY | 2020-09-21 09:55 | CCD ---
Author Author [facility] Organization [facility] Address Unknown Phone Unavailable Care Team Providers Care Novelties Sales Representative Name Role Phone Nora CLAUDIO DPM Unavailable Unavailable Nora CLAUDIO DPM Unavailable Unavailable Nora CLAUDIO DPM Unavailable Unavailable Nora CLAUDIO DPM Unavailable Unavailable Nora CLAUDIO DPM Unavailable Unavailable Nora CLAUDIO DPM Unavailable Unavailable Nora CLAUDIO DPM Unavailable Unavailable Nora CLAUDIO DPM Unavailable Unavailable Nora CLAUDIO DPM Unavailable Unavailable Nora CLAUDIO DPM Unavailable Unavailable Nora CLAUDIO DPM Unavailable Unavailable Nora CLAUDIO DPM Unavailable Unavailable Nora CLAUDIO DPM Unavailable Unavailable Nora CLAUDIO DPM Unavailable Unavailable Nora CLAUDIO DPM Unavailable Unavailable Nora CLAUDIO DPM Unavailable Unavailable Nora CLAUDIO DPM Unavailable Unavailable Nora CLAUDIO DPM Unavailable Unavailable Nora CLAUDIO DPM Unavailable Unavailable Nora CLAUDIO DPM Unavailable Unavailable Nora CLAUDIO DPM Unavailable Unavailable Nora CLAUDIO DPM Unavailable Unavailable Nora CLAUDIO DPM Unavailable Unavailable Nora CLAUDIO DPM Unavailable Unavailable Nora CLAUDIO DPM Unavailable Unavailable Nora CLAUDIO DPM Unavailable Unavailable Nora CLAUDIO DPM Unavailable Unavailable Nora CLAUDIO DPM Unavailable Unavailable Nora CLAUDIO DPM Unavailable Unavailable Nora CLAUDIO DPM Unavailable Unavailable Kilgore, L Beatriz PA Unavailable Unavailable Kilgore, L Beatriz PA Unavailable Unavailable Kilgore, L Beatriz PA Unavailable Unavailable Kilgore, L Beatriz PA Unavailable Unavailable Kilgore, L Beatriz PA Unavailable Unavailable Kilgore, L Beatriz PA Unavailable Unavailable Kilgore, L Beatriz PA Unavailable Unavailable Kilgore, L Beatriz PA Unavailable Unavailable Kilgore, L Beatriz PA Unavailable Unavailable Kilgore, L Beatriz PA Unavailable Unavailable Kilgore, L Beatriz PA Unavailable Unavailable Kilgore, L Betariz PA Unavailable Unavailable Kilgore, L Beatriz PA Unavailable Unavailable Kilgore, L Beatriz PA Unavailable Unavailable Kilgore, L Beatriz PA Unavailable Unavailable Kilgore, L Beatriz PA Unavailable Unavailable Kilgore, L Beatriz PA Unavailable Unavailable Kilgore, L Beatriz PA Unavailable Unavailable Kilgore, L Beatriz PA Unavailable Unavailable Kilgore, L Beatriz PA Unavailable Unavailable Kilgore, L Beatriz PA Unavailable Unavailable Kilgore, L Beatriz PA Unavailable Unavailable Kilgore, L Beatriz PA Unavailable Unavailable Kilgore, L Beatriz PA Unavailable Unavailable Kilgore, L Beatriz PA Unavailable Unavailable Kilgore, L Beatriz PA Unavailable Unavailable Kilgore, L Beatriz PA Unavailable Unavailable Kilgore, L Beatriz PA Unavailable Unavailable Kilgore, L Beatriz PA Unavailable Unavailable Kilgore, L Beatriz PA Unavailable Unavailable Kilgore, L Beatriz PA Unavailable Unavailable Kilgore, L Beatriz PA Unavailable Unavailable Kilgore, L Beatriz PA Unavailable Unavailable Kilgore, L Beatriz PA Unavailable Unavailable Kilgore, L Beatriz PA Unavailable Unavailable Kilgore, L Beatriz PA Unavailable Unavailable RING, K LAURA PA Unavailable Unavailable RING, K LAURA PA Unavailable Unavailable RING, K LAURA PA Unavailable Unavailable RING, K LAURA PA Unavailable Unavailable RING, K LAURA PA Unavailable Unavailable RING, K LAURA PA Unavailable Unavailable RING, K LAURA PA Unavailable Unavailable RING, K LAURA PA Unavailable Unavailable RING, K LAURA PA Unavailable Unavailable RING, K LAURA PA Unavailable Unavailable RING, K LAURA PA Unavailable Unavailable RING, K LAURA PA Unavailable Unavailable RING, K LAURA PA Unavailable Unavailable RING, K LAURA PA Unavailable Unavailable RING, K LAURA PA Unavailable Unavailable RING, K LAURA PA Unavailable Unavailable RING, K LAURA PA Unavailable Unavailable RING, K LAURA PA Unavailable Unavailable RING, K LAURA PA Unavailable Unavailable RING, K LAURA PA Unavailable Unavailable RING, K LAURA PA Unavailable Unavailable NORMA (WALTERS), N KRYSTEN RPA-C Unavailable Unavailable NORMA (WALTERS), N KRYSTEN RPA-C Unavailable Unavailable NORMA (WALTERS), N KRYSTEN RPA-C Unavailable Unavailable NORMA (WALTERS), N KRYSTEN RPA-C Unavailable Unavailable NORMA (WALTERS), N KRYSTEN RPA-C Unavailable Unavailable NORMA (WALTERS), N KRYSTEN RPA-C Unavailable Unavailable NORMA (WALTERS), N KRYSTEN RPA-C Unavailable Unavailable NORMA (WALTERS), N KRYSTEN RPA-C Unavailable Unavailable NORMA (WALTERS), N KRYSTEN RPA-C Unavailable Unavailable NORMA (WALTERS), N KRYSTEN RPA-C Unavailable Unavailable NORMA (WALTERS), N KRYSTEN RPA-C Unavailable Unavailable NORMA (WALTERS), N KRYSTEN RPA-C Unavailable Unavailable NORMA (WALTERS), N KRYSTEN RPA-C Unavailable Unavailable NORMA (WALTERS), N KRYSTEN RPA-C Unavailable Unavailable NORMA (WALTERS), N KRYSTEN RPA-C Unavailable Unavailable NORMA (WALTERS), N KRYSTEN RPA-C Unavailable Unavailable NORMA (WALTERS), N KRYSTEN RPA-C Unavailable Unavailable NORMA (WALTERS), N KRYSTEN RPA-C Unavailable Unavailable NORMA (WALTERS), N KRYSTEN RPA-C Unavailable Unavailable NORMA (WALTERS), N KRYSTEN RPA-C Unavailable Unavailable NORMA (WALTERS), N KRYSTEN RPA-C Unavailable Unavailable NORMA (WALTERS), N KRYSTEN RPA-C Unavailable Unavailable NORMA (WALTERS), N KRYSTEN RPA-C Unavailable Unavailable NORMA (WALTERS), N KRYSTEN RPA-C Unavailable Unavailable NORMA (WALTERS), N KRYSTEN RPA-C Unavailable Unavailable NORMA (WALTERS), N KRYSTEN RPA-C Unavailable Unavailable NORMA (WALTERS), N KRYSTEN RPA-C Unavailable Unavailable NORMA (WALTERS), N KRYSTEN RPA-C Unavailable Unavailable NORMA (WALTERS), N KRYSTEN RPA-C Unavailable Unavailable NORMA (WALTERS), N KRYSTEN RPA-C Unavailable Unavailable NORMA (WALTERS), N KRYSTEN RPA-C Unavailable Unavailable NORMA (WALTERS), N KRYSTEN RPA-C Unavailable Unavailable NORMA (WALTERS), N KRYSTEN RPA-C Unavailable Unavailable NORMA (WALTERS), N KRYSTEN RPA-C Unavailable Unavailable NORMA (WALTERS), N KRYSTEN RPA-C Unavailable Unavailable NORMA (WALTERS), N KRYSTEN RPA-C Unavailable Unavailable NORMA (WALTERS), N KRYSTEN RPA-C Unavailable Unavailable NORMA (WALTERS), N KRYSTEN RPA-C Unavailable Unavailable NORMA (WALTERS), N KRYSTEN RPA-C Unavailable Unavailable NORMA (WALTERS), N KRYSTEN RPA-C Unavailable Unavailable NORMA (WALTERS), N KRYSTEN RPA-C Unavailable Unavailable NORMA (WALTERS), N KRYSTEN RPA-C Unavailable Unavailable NORMA (WALTERS), N RKYSTEN RPA-C Unavailable Unavailable NORMA (WALTERS), N KRYSTEN RPA-C Unavailable Unavailable NORMA (WALTERS), N KRYSTEN RPA-C Unavailable Unavailable NORMA (WALTERS), N KRYSTEN RPA-C Unavailable Unavailable NORMA (WALTERS), N KRYSTEN RPA-C Unavailable Unavailable NORMA (WALTERS), N KRYSTEN RPA-C Unavailable Unavailable NORMA (WALTERS), N KRYSTEN RPA-C Unavailable Unavailable NORMA (WALTERS), N KRYSTEN RPA-C Unavailable Unavailable NORMA (WALTERS), N KRYSTNE RPA-C Unavailable Unavailable NORMA (WALTERS), N KRYSTEN RPA-C Unavailable Unavailable NORMA (WALTERS), N KRYSTEN RPA-C Unavailable Unavailable Becerril, Zoie ONLINE TRADER Unavailable Unavailable Becerril, Zoie ONLINE TRADER Unavailable Unavailable Becerril, Zoie ONLINE TRADER Unavailable Unavailable Becerril, Zoie ONLINE TRADER Unavailable Unavailable Becerril, Zoie ONLINE TRADER Unavailable Unavailable Becerril, Zoie ONLINE TRADER Unavailable Unavailable Becerril, Zoie ONLINE TRADER Unavailable Unavailable Becerril, Zoie ONLINE TRADER Unavailable Unavailable Becerril, Zoie ONLINE TRADER Unavailable Unavailable Becerril, Zoie ONLINE TRADER Unavailable Unavailable Becerril, Zoie ONLINE TRADER Unavailable Unavailable Re-disclosure Warning The records that you are about to access may contain information from federally-assisted alcohol or drug abuse programs. If such information is present, then the following federally mandated warning applies: This information has been disclosed to you from records protected by federal confidentiality rules (42 CFR part 2). The federal rules prohibit you from making any further disclosure of this information unless further disclosure is expressly permitted by the written consent of the person to whom it pertains or as otherwise permitted by 42 CFR part 2. A general authorization for the release of medical or other information is NOT sufficient for this purpose. The Federal rules restrict any use of the information to criminally investigate or prosecute any alcohol or drug abuse patient.The records that you are about to access may contain highly sensitive health information, the redisclosure of which is protected by Article 27-F of the [facility] Public Health law. If you continue you may have access to information: Regarding HIV / AIDS; Provided by facilities licensed or operated by the [facility] Office of Mental Health; or Provided by the [facility] Office for People With Developmental Disabilities. If such information is present, then the following [facility] mandated warning applies: This information has been disclosed to you from confidential records which are protected by state law. State law prohibits you from making any further disclosure of this information without the specific written consent of the person to whom it pertains, or as otherwise permitted by law. Any unauthorized further disclosure in violation of state law may result in a fine or skilled nursing sentence or both. A general authorization for the release of medical or other information is NOT sufficient authorization for further disc losure. Allergies and Adverse Reactions Type Description Substance Reaction Status Data Source(s ) Drug allergy Tricor Fenofibrate (FENOFIBRATE) LOW B/P pass out A ctive eCW1 ([facility]) Drug allergy Vitamin D Cholecalciferol upset stomach Active eCW 1 ([facility]) air freshener air freshener air freshener trouble breathing Active eCW1 ([facility]) air freshener air freshener air freshener trouble breathing Active eCW1 ([facility]) air freshener air freshener air freshener trouble breathing Active eCW1 ([facility]) Family History Family Member Name Family Member Gender Family Member Status Date o f Status Description Data Source(s) Unknown Unknown Problem MEDENT ([facility]) Unknown Unknown Problem MEDENT ([facility]) Unknown Unknown Problem MEDENT ([facility]) father at age 77 Unknown Female Problem MEDENT ([facility]) Encounters Encounter Providers Location Date Indications Data Source(s ) [place] [address] [facility] [address] 09/15/2020 12:00:00 AM EST eCW1 (Critical access hospital) [place] [address] [facility] [address] 09/12/2020 12:00:00 AM EST eCW1 (Critical access hospital) Unknown [address] [facility] [address] 08/23/2020 12:00:00 AM EST eCW1 (Critical access hospital) Outpatient [address] [facility] [place] [address] 07/04/2020 12:00:00 AM EST eCW1 (Critical access hospital) Outpatient Attender: Beatriz IVAN.LUCERO-SJPRadhaLUCERO 06/2020 12:00:00 AM EST - 06/09/2020 02:07:02 PM EST [facility] Unknown [address] [facility] [place] [address] 05/30/2020 12:00:00 AM EST eCW1 (Critical access hospital) Outpatient Attender: Zoie sharif 01/22/2020 03:15:00 PM EDT MEDENT ([facility]) Outpatient [address] [facility] [place] [address] 01/06/2020 12:00:00 AM EDT eCW1 (Critical access hospital) Unknown [address] [facility] [place] [address] 10/15/2019 12:00:00 AM EDT eCW1 ([facility]) [facility] [address] [place] [address] 10/08/2019 12:00:00 AM EDT eCW1 ([facility]) Outpatient Attender: DEMI CLAUDIO [facility] Office 09/26 11:00:00 AM EDT MEDENT ([facility] [address] [facility] [place] [address] 10/02/2019 12:00:00 AM EST eCW1 ([facility]) [facility] [address] [place] [phone] 10/02/2019 12:00:00 AM EST eCW1 (Critical access hospital) [facility] [address] [place] [phone] 10/02/2019 12:00:00 AM EST eCW1 (Critical access hospital) [facility] [address] [place] [phone] 09/23/2019 12:00:00 AM EST eCW1 (Critical access hospital) Outpatient Referrer: KRYSTEN GREEN (MESQUITE) RPA-C 08/28/2019 02:39:00 PM EST [facility] Outpatient Attender: LAURA Pierre 08/24/2019 03:15:00 PM EST MEDENT ([facility]) Outpatient Referrer: KRYSTEN GREEN (MESQUITE) RPA-C 08/24/2019 01:09:00 PM EST [facility] [address] [place] [phone] 08/20/2019 12:00:00 AM EST eCW1 (Critical access hospital) [facility] [address] [address] 08/13/2019 12:00:00 AM EST eCW1 (Critical access hospital) [facility] [address] [address] 08/12/2019 12:00:00 AM EST eCW1 (Critical access hospital) [facility] [address] [place] [phone] 07/30/2019 12:00:00 AM EST eCW1 (Critical access hospital) Medications Medication Brand Name Start Date Product Form Dose Route Admi nistrative Instructions Pharmacy Instructions Status Indications Reaction Description Data Source(s) 0.4 mg 09/13/2020 12:00:00 AM EST capsule 30 TAKE ONE CAPSULE BY MOUTH EVERY DAY TAKE ONE CAPSULE BY MOUTH EVERY DAY SOLD: 09/13/2020 [facility] Tamsulosin hydrochloride 0.4 MG Oral Capsule [Flomax] Flomax 0.4 MG Flomax 0.4 MG 09/12/2020 12:00:00 AM EST 1.0 {capsule} active Flomax 0.4 MG eCW1 ([facility]) Tamsulosin hydrochloride 0.4 MG Oral Capsule [Flomax] Flomax 0.4 MG Flomax 0.4 MG 09/12/2020 12:00:00 AM EST 1.0 {capsule} active Flomax 0.4 MG eCW1 ([facility]) Rosuvastatin calcium 40 MG Oral Tablet ROSUVASTATIN CALCIUM 06/28/2020 12:00:00 AM EST tablet 90 TAKE ONE TABLET BY MOUTH SOLO DAY TAKE ONE TABLET BY MOUTH EVERY DAY SOLD: 06/30/2020 [facility] 50 mg 06/28/2020 12:00:00 AM EST tablet 90 TAKE ONE TABLET BY MOUTH EVERY DAY TAKE ONE TABLET BY MOUTH EVERY DAY SOLD: 06/30/2020 [facility] 0.4 mg 06/09/2020 12:00:00 AM EST tablet, sublingual 25 TAKE 1 TABLET UNDER TONGUE EVERY 5 MINUTES NEEDED CHEST PAIN * MAXIMUM DAILY DOSE = 3 TAKE 1 TABLET UNDER TONGUE EVERY 5 MINUTES NEEDED CHEST PAIN * MAXIMUM DAILY DOSE = 3 SOLD: 06/10/2020 [facility] pantoprazole 40 MG Delayed Release Oral Tablet PANTOPRAZOLE SODIUM 05/31/2020 12:00:00 AM EST tablet,delayed release (DR/EC) 180 T ANDREI ONE TABLET BY MOUTH TWICE A DAY TAKE ONE TABLET BY MOUTH TWICE A DAY SOLD: 05/31/2020 [facility] pantoprazole 40 MG Delayed Release Oral Tablet PANTOPRAZOLE SODIUM 05/31/2020 12:00:00 AM EST tablet,delayed release (DR/EC) 42 T ANDREI ONE TABLET BY MOUTH TWICE A DAY TAKE ONE TABLET BY MOUTH TWICE A DAY SOLD: 09/07/2020 [facility] 2 mg 04/26/2020 12:00:00 AM EDT tablet 180 TAKE ONE TABLET BY MOUTH TWICE A DAY TAKE ONE TABLET BY MOUTH TWICE A DAY SOLD: 04/28/2020 [facility] 2 mg 04/26/2020 12:00:00 AM EDT tablet 180 TAKE ONE TABLET BY MOUTH TWICE A DAY TAKE ONE TABLET BY MOUTH TWICE A DAY SOLD: 07/30/2020 [facility] 40 mg 03/30/2020 12:00:00 AM EDT tablet,delayed release (DR/EC) 90 TAKE ONE TABLET BY MOUTH EVERY DAY TAKE ONE TABLET BY MOUTH EVERY DAY SOLD: 03/31/2020 [facility] 5 mg 03/29/2020 12:00:00 AM EDT tablet 90 TAKE ONE TABLET BY MOUTH EVERY DAY TAKE ONE TABLET BY MOUTH EVERY DAY SOLD: 06/30/2020 [facility] 5 mg 03/29/2020 12:00:00 AM EDT tablet 90 TAKE ONE TABLET BY MOUTH EVERY DAY TAKE ONE TABLET BY MOUTH EVERY DAY SOLD: 03/31/2020 [facility] Metformin hydrochloride 1000 MG Oral Tablet 1,000 mg METFORM IN HCL 03/29/2020 12:00:00 AM EDT tablet 180 TAKE ONE TABLET BY MOUTH TWICE A DAY WITH MEALS TAKE ONE TABLET BY MOUTH TWICE A DAY WITH MEALS SOLD: 03/31/2020 [facility] Metformin hydrochloride 1000 MG Oral Tablet 1,000 mg METFORM IN HCL 03/29/2020 12:00:00 AM EDT tablet 180 TAKE ONE TABLET BY MOUTH TWICE A DAY WITH MEALS TAKE ONE TABLET BY MOUTH TWICE A DAY WITH MEALS SOLD: 06/30/2020 [facility] 75 mcg 03/28/2020 12:00:00 AM EDT tablet 90 TAKE ONE TABLET BY MOUTH EVERY DAY TAKE ONE TABLET BY MOUTH EVERY DAY SOLD: 06/30/2020 [facility] 150 mg 03/28/2020 12:00:00 AM EDT tablet sustained-releas e 12 hr 180 TAKE ONE TABLET BY MOUTH TWICE A DAY TAKE ONE TABLET BY MOUTH TWICE A DAY SOLD: 03/31/2020 [facility] 75 mcg 03/28/2020 12:00:00 AM EDT tablet 90 TAKE ONE TABLET BY MOUTH EVERY DAY TAKE ONE TABLET BY MOUTH EVERY DAY SOLD: 03/31/2020 [facility] 150 mg 03/28/2020 12:00:00 AM EDT tablet sustained-releas e 12 hr 180 TAKE ONE TABLET BY MOUTH TWICE A DAY TAKE ONE TABLET BY MOUTH TWICE A DAY SOLD: 06/30/2020 [facility] 2 mg 01/26/2020 12:00:00 AM EDT tablet 180 TAKE ONE TABLET BY MOUTH TWICE A DAY TAKE ONE TABLET BY MOUTH TWICE A DAY SOLD: 01/27/2020 [facility] 20 mg 01/22/2020 12:00:00 AM EDT tablet 8 TAKE ONE TABLET BY MOUTH TWICE A DAY FOR 4 DAYS TAKE ONE TABLET BY MOUTH TWICE A DAY FOR 4 DAYS SOLD: 2019 [facility] Cyclobenzaprine hydrochloride 5 MG Oral Tablet CYCLOBENZAPRI NE HCL 01/22/2020 12:00:00 AM EDT tablet 10 TAKE ONE TABLET BY MOUTH AT BEDTIME NEEDED FOR MUSCLE SPASMS TAKE ONE TABLET BY MOUTH AT BEDTIME NEEDED FOR MUSC LE SPASMS SOLD: 01/22/2020 [facility] Prednisone 20 MG Oral Tablet Prednisone 01/22/2020 12:00:00 AM EDT active MEDENT ([facility]) Cyclobenzaprine hydrochloride 5 MG Oral Tablet Cyclobenzapri ne HCL 01/22/2020 12:00:00 AM EDT active M EDENT ([facility]) Bladder Mediction 01/22/2020 12:00:00 AM EDT active MEDENT ([facility]) Methylprednisolone Sodium Succinate To 125 MG 01/22/2020 1 2:00:00 AM EDT completed MEDENT ([facility]) Medication administered onsite 50 mg 12/31/2019 12:00:00 AM EDT tablet 90 TAKE ONE TABLET BY MOUTH EVERY DAY TAKE ONE TABLET BY MOUTH EVERY DAY SOLD: 03/31/2020 [facility] 40 mg 12/31/2019 12:00:00 AM EDT tablet 90 TAKE ONE TABLET BY MOUTH EVERY DAY TAKE ONE TABLET BY MOUTH EVERY DAY SOLD: 03/31/2020 [facility] 50 mg 12/31/2019 12:00:00 AM EDT tablet 90 TAKE ONE TABLET BY MOUTH EVERY DAY TAKE ONE TABLET BY MOUTH EVERY DAY SOLD: 01/03/2020 [facility] 40 mg 12/31/2019 12:00:00 AM EDT tablet 90 TAKE ONE TABLET BY MOUTH EVERY DAY TAKE ONE TABLET BY MOUTH EVERY DAY SOLD: 01/03/2020 [facility] 2 mg 10/27/2019 12:00:00 AM EDT tablet 60 TAKE ONE TABLET BY MOUTH TWICE A DAY TAKE ONE TABLET BY MOUTH TWICE A DAY SOLD: 11/28/2019 [facility] 2 mg 10/27/2019 12:00:00 AM EDT tablet 60 TAKE ONE TABLET BY MOUTH TWICE A DAY TAKE ONE TABLET BY MOUTH TWICE A DAY SOLD: 12/29/2019 [facility] 2 mg 10/27/2019 12:00:00 AM EDT tablet 60 TAKE ONE TABLET BY MOUTH TWICE A DAY TAKE ONE TABLET BY MOUTH TWICE A DAY SOLD: 10/29/2019 [facility] tolterodine tartrate 2 MG Oral Tablet Tolterodine Tart rate 2 MG Tolterodine Tartrate 2 MG 10/22/2019 12:00:00 AM EDT 1.0 {tablet} active Tolterodine Tartrate 2 MG eCW1 ([facility]) tolterodine tartrate 2 MG Oral Tablet Tolterodine Tart rate 2 MG Tolterodine Tartrate 2 MG 10/22/2019 12:00:00 AM EDT 1.0 {tablet} active Tolterodine Tartrate 2 MG eCW1 ([facility]) 50 mg 10/10/2019 12:00:00 AM EDT tablet extended release 24 hr 30 TAKE ONE TABLET BY MOUTH EVERY DAY TAKE ONE TABLET BY MOUTH EVERY DAY SOLD: 10/11/2019 [facility] Myrbetriq 50 MG UNK 10/08/2019 12:00:00 AM EDT 1.0 {tablet} active Myrbetriq 50 MG eCW1 ([facility]) Myrbetriq 50 MG UNK 10/08/2019 12:00:00 AM EDT ac tive 1 tablet eCW1 ([facility]) Myrbetriq 50 MG UNK 10/08/2019 12:00:00 AM EDT 1.0 {tablet} active Myrbetriq 50 MG eCW1 ([facility]) Myrbetriq 50 MG UNK 10/08/2019 12:00:00 AM EDT 1.0 {tablet} active Myrbetriq 50 MG eCW1 ([facility]) Myrbetriq 50 MG UNK 10/08/2019 12:00:00 AM EDT 1.0 {tablet} active Myrbetriq 50 MG eCW1 ([facility]) Myrbetriq 50 MG UNK 10/08/2019 12:00:00 AM EDT 1.0 {tablet} active Myrbetriq 50 MG eCW1 ([facility]) Myrbetriq 50 MG UNK 10/08/2019 12:00:00 AM EDT 1.0 {tablet} active Myrbetriq 50 MG eCW1 ([facility]) 5 mg 10/03/2019 12:00:00 AM EST tablet 90 TAKE ONE TABLET BY MOUTH EVERY DAY TAKE ONE TABLET BY MOUTH EVERY DAY SOLD: 01/03/2020 [facility] 5 mg 10/03/2019 12:00:00 AM EST tablet 90 TAKE ONE TABLET BY MOUTH EVERY DAY TAKE ONE TABLET BY MOUTH EVERY DAY SOLD: 10/07/2019 [facility] 40 mg 10/03/2019 12:00:00 AM EST tablet,delayed release (DR/EC) 90 TAKE ONE TABLET BY MOUTH EVERY DAY TAKE ONE TABLET BY MOUTH EVERY DAY SOLD: 10/07/2019 [facility] 150 mg 10/03/2019 12:00:00 AM EST tablet sustained-releas e 12 hr 180 TAKE ONE TABLET BY MOUTH TWICE A DAY TAKE ONE TABLET BY MOUTH TWICE A DAY SOLD: 01/03/2020 [facility] 40 mg 10/03/2019 12:00:00 AM EST tablet,delayed release (DR/EC) 90 TAKE ONE TABLET BY MOUTH EVERY DAY TAKE ONE TABLET BY MOUTH EVERY DAY SOLD: 01/03/2020 [facility] 150 mg 10/03/2019 12:00:00 AM EST tablet sustained-releas e 12 hr 180 TAKE ONE TABLET BY MOUTH TWICE A DAY TAKE ONE TABLET BY MOUTH TWICE A DAY SOLD: 10/07/2019 [facility] Crutches-Aluminum 08/24/2019 12:00:00 AM EST completed MEDENT ([facility]) Air Cast L Ankle 08/24/2019 12:00:00 AM EST c ompleted MEDENT ([facility]) Oxybutynin chloride 5 MG Oral Tablet OXYBUTYNIN CHLORIDE 12:00:00 AM EST tablet 60 TAKE ONE TABLET BY MOUTH TWI CE A DAY TAKE ONE TABLET BY MOUTH TWICE A DAY SOLD: 08/17/2019 [facility] Oxybutynin chloride 5 MG Oral Tablet Oxybutynin Chlori de 5 MG Oxybutynin Chloride 5 MG 08/12/2019 12:00:00 AM EST 1.0 {tablet} active Oxybutynin Chloride 5 MG eCW1 ([facility]) Oxybutynin chloride 5 MG Oral Tablet Oxybutynin Chlori de 5 MG Oxybutynin Chloride 5 MG 08/12/2019 12:00:00 AM EST 1.0 {tablet} active Oxybutynin Chloride 5 MG eCW1 ([facility]) Oxybutynin chloride 5 MG Oral Tablet Oxybutynin Chlori de 5 MG Oxybutynin Chloride 5 MG 08/12/2019 12:00:00 AM EST 1.0 {tablet} active Oxybutynin Chloride 5 MG eCW1 ([facility]) Oxybutynin chloride 5 MG Oral Tablet Oxybutynin Chlori de 5 MG Oxybutynin Chloride 5 MG 08/12/2019 12:00:00 AM EST active 1 tablet eCW1 ([facility]) Oxybutynin chloride 5 MG Oral Tablet Oxybutynin Chlori de 5 MG Oxybutynin Chloride 5 MG 08/12/2019 12:00:00 AM EST 1.0 {tablet} active Oxybutynin Chloride 5 MG eCW1 ([facility]) Oxybutynin chloride 5 MG Oral Tablet Oxybutynin Chlori de 5 MG Oxybutynin Chloride 5 MG 08/12/2019 12:00:00 AM EST 1.0 {tablet} active Oxybutynin Chloride 5 MG eCW1 ([facility]) Oxybutynin chloride 5 MG Oral Tablet Oxybutynin Chlori de 5 MG Oxybutynin Chloride 5 MG 08/12/2019 12:00:00 AM EST 1.0 {tablet} active Oxybutynin Chloride 5 MG eCW1 ([facility]) Oxybutynin Chloride 5 MG UNK 08/12/2019 12:00:00 AM EST active 1 tablet eCW1 ([facility]) Losartan Potassium 50 MG Oral Tablet LOSARTAN POTASSIUM 04/2019 12:00:00 AM EST tablet 90 TAKE ONE TABLET BY MOUTH SOLO RY DAY TAKE ONE TABLET BY MOUTH EVERY DAY SOLD: 10/07/2019 [facility] 1,000 mg 07/07/2019 12:00:00 AM EST tablet 180 TAKE ONE TABLET BY MOUTH TWICE A DAY WITH MEALS TAKE ONE TABLET BY MOUTH TWICE A DAY WITH MEALS SOLD: 10/07/2019 [facility] 40 mg 07/07/2019 12:00:00 AM EST tablet 90 TAKE ONE TABLET BY MOUTH EVERY DAY TAKE ONE TABLET BY MOUTH EVERY DAY SOLD: 10/07/2019 [facility] 1,000 mg 07/07/2019 12:00:00 AM EST tablet 180 TAKE ONE TABLET BY MOUTH TWICE A DAY WITH MEALS TAKE ONE TABLET BY MOUTH TWICE A DAY WITH MEALS SOLD: 01/03/2020 [facility] 75 mcg 04/08/2019 12:00:00 AM EDT tablet 90 TAKE ONE TABLET BY MOUTH ONCE A DAY TAKE ONE TABLET BY MOUTH ONCE A DAY SOLD: 10/07/2019 [facility] 75 mcg 04/08/2019 12:00:00 AM EDT tablet 90 TAKE ONE TABLET BY MOUTH ONCE A DAY TAKE ONE TABLET BY MOUTH ONCE A DAY SOLD: 01/03/2020 [facility] Insurance Providers Payer name Policy type / Coverage type Policy ID Covered constitution party ID Covered constitution party's relationship to arreola Policy [place] Plan Information MEDICARE COMPLETE [id number] SP [id number] [facility] [id number] SP [id number] MEDICARE COMPLETE [id number] SP [id number] SELF PAY ONLY [id number] SP [id number] MEDICARE [id number] [place] [id number] MEDICARE COMPLETE-[facility] O [id number] S [id number] ANSI-Medicare Part B [id number] ANSI-Not a Secondary Insurance [id number] ANSI-Medicare Part B [id number] ANSI-Not a Secondary Insurance [id number] ANSI-Medicare Part B [id number] ANSI-Not a Secondary Insurance [id number] ANSI-Medicare Part B [id number] ANSI-Not a Secondary Insurance [id number] MEDICARE COMPLETE [id number] 90 [id number] ANSI-Medicare Part B [id number] ANSI-Not a Secondary Insurance [id number] ANSI-Not a Secondary Insurance [id number] ANSI-Medicare Part B [id number] ANSI-Medicare Part B [id number] ANSI-Not a Secondary Insurance [id number] ANSI-Not a Secondary Insurance [id number] ANSI-Medicare Part B [id number] ANSI-Not a Secondary Insurance [id number] ANSI-Medicare Part B [id number] ANSI-Not a Secondary Insurance [id number] ANSI-Medicare Part B [id number] MEDICARE [id number] SP [id number] ANSI-Medicare Part B [id number] ANSI-Medicare Part B [id number] ANSI-Medicare Part B [id number] MEDICARE [id number] SP [id number] A ANSI-Medicare Part B [id number] ANSI-Medicare Part B [id number] ANSI-Medicare Part B [id number] MEDICARE COMPLETE [id number] SP [id number] ANSI-Medicare Part B [id number] ANSI-Medicare Part B [id number] ANSI-Medicare Part B [id number] ANSI-Medicare Part B [id number] ANSI-Medicare Part B [id number] MEDICARE COMPLETE-[facility] O [id number] S [id number] [facility] Medicare Commercial [id number] Self [id number] [place] HLCR/Medicare Solu Commercial [id number] Self [id number] MEDICARE COMPLETE [id number] SP [id number] [facility] Self [employer] Medicare [employer] Commercial Self MEDICARE COMPLETE-[facility] O [id number] S [id number] MEDICARE P [id number] S [id number] A MEDICARE [id number] SP [id number] A Problems, Conditions, and Diagnoses Code Display Name Description Problem Type Effective Dates Data Source(s) E78.2 523061210 Mixed hyperlipidemia Problem 07/30/2019 12:0 0:00 AM EST eCW1 ([facility]) E78.2 [id number] Mixed hyperlipidemia Problem 07/30/2019 12:0 0:00 AM EST eCW1 ([facility]) E78.2 Mixed hyperlipidemia Mixed hyperlipidemia Diagnosis 06/09/2020 01:04:46 PM EST [facility] I10 Essential (primary) hypertension Essential (primary) h ypertension Diagnosis 06/09/2020 01:04:46 PM EST [facility] Z98.61 Coronary angioplasty status Coronary angioplasty statu s Diagnosis 06/09/2020 01:04:46 PM EST [facility] R01.1 Cardiac murmur, unspecified Cardiac murmur, unspecifie d Diagnosis 06/09/2020 01:04:46 PM EST [facility] Surgeries/Procedures Procedure Description Date Indications Data Source(s) Therapeutic, Prophylactic Or Diagnostic Injection Subq/Im 01/22/2020 12:00:00 AM EDT MEDENT ([facility]) Office Visit, Est Pt., Level 2 FC 09/30/2019 12:00:00 AM EST eCW1 ([facility]) Office Visit, Est Pt., Level 3 PC 09/30/2019 12:00:00 AM EST eCW1 ([facility]) US URINE CAPACITY MEASURE 09/30/2019 12:00:00 AM EST eCW1 ([facility]) Annual wellness visit, includes a person alized prevention plan of service (pps), subsequent visit 07/30/2019 12:00:00 AM EST eCW 1 ([facility]) Results ID Date Data Source URINE CULTURE 09/14/2020 12:00:00 AM EST eCW1 ([facility]) Name Value Range Interpretation Code Description Data Genna rce(s) Supporting Document(s) URINE CULTURE eCW1 ([facility]) ID Date Data Source UA URINALYSIS 09/14/2020 12:00:00 AM EST eCW1 ([facility]) Name Value Range Interpretation Code Description Data Genna rce(s) Supporting Document(s) UA URINALYSIS eCW1 ([facility]) ID Date Data Source [id number] 07/04/2020 12:00:00 AM EST eCW1 ([facility]) Name Value Range Interpretation Code Description Data Genna rce(s) Supporting Document(s) Albumin/Creatinine [Mass Ratio] in Urine 20.6 MALB URINE SIEMENS eCW1 ([facility]) Microalbumin/Creatinine [Mass Ratio] in Urine 192.0 CREATININE, URINE eCW1 ([facility]) Microalbumin/Creatinine [Ratio] in Urine 10.7 0.0-30.0 BAILEY/CREAT RATIO eCW1 ([facility]) ID Date Data Source TSH 07/04/2020 12:00:00 AM EST eCW1 ([facility]) Name Value Range Interpretation Code Description Data Genna rce(s) Supporting Document(s) 2.450 0.358-3.740 THYROID STIMULATING HORM ONE eCW1 ([facility]) ID Date Data Source VITAMIN D 25-HYDROXY 07/04/2020 12:00:00 AM EST eCW1 ([facility]) Name Value Range Interpretation Code Description Data Genna rce(s) Supporting Document(s) 27.3 30.0-100.0 TOTAL 25(OH) VITAMIN D eC W1 ([facility]) ID Date Data Source LIPID PANEL (CARDIAC RISK) 07/04/2020 12:00:00 AM EST eCW1 ( [facility]) Name Value Range Interpretation Code Description Data Genna rce(s) Supporting Document(s) Triglyceride [Mass/volume] in Serum or Plasma by calculation 145 <150 TRIGLYCERIDES LEVEL eCW1 ([facility]) Cholesterol [Moles/volume] in Serum or Plasma 124 <200 CHOLESTEROL LEVEL eCW1 ([facility]) 74 NON-HDL-C eCW1 ([facility]) Cholesterol in HDL [Moles/volume] in Serum or Plasma 50 >40 HDL CHOLESTEROL eCW1 ([facility]) 2.480 <5 CHOLESTEROL RISK RATIO eCW1 ([facility]) Cholesterol in LDL [Mass/volume] in Serum or Plasma by calculation 45 <100 LDL CHOLESTEROL eCW1 ([facility]) ID Date Data Source Comprehensive Metabolic Profile (CMP) 07/04/2020 12:00:00 AM EST eCW1 ([facility]) Name Value Range Interpretation Code Description Data Genna rce(s) Supporting Document(s) 0.89 0.55-1.30 CREATININE FOR GFR eCW1 ([facility]) 156 70-100 GLUCOSE, FASTING eCW1 ([facility]) 16 7-18 BLOOD UREA NITROGEN eCW1 ([facility]) 141 136-145 SODIUM LEVEL eCW1 ([facility]) > 60.0 >39 GLOMERULAR FILTRATION RATE eCW 1 ([facility]) 4.1 3.5-5.1 POTASSIUM SERUM eCW1 ([facility]) 41 7-37 AST/SGOT eCW1 ([facility]) 28 21-32 CARBON DIOXIDE LEVEL eCW1 ([facility]) 9.7 8.8-10.2 CALCIUM LEVEL eCW1 ([facility]) 109 98-107 CHLORIDE LEVEL eCW1 ([facility]) 0.4 0.2-1.0 BILIRUBIN,TOTAL eCW1 ([facility]) 138 45-117 ALKALINE PHOSPHATASE eCW1 ([facility]) 7.3 6.4-8.2 TOTAL PROTEIN eCW1 ([facility]) 71 12-78 ALT/SGPT eCW1 ([facility]) 1.1 1.2-2.2 ALBUMIN/GLOBULIN RATIO eCW1 ([facility]) 3.8 3.2-5.2 ALBUMIN eCW1 ([facility]) ID Date Data Source CBC with Differential 07/04/2020 12:00:00 AM EST eCW1 ([facility]) Name Value Range Interpretation Code Description Data Genna rce(s) Supporting Document(s) 8.7 4.0-10.0 WHITE BLOOD COUNT eCW1 ([facility]) 43.1 36.0-47.0 HEMATOCRIT eCW1 ([facility]) 13.6 12.0-15.5 HEMOGLOBIN eCW1 ([facility]) 4.52 4.00-5.40 RED BLOOD COUNT eCW1 ([facility]) 95.4 80.0-96.0 MEAN CORPUSCULAR VOLUME e CW1 ([facility]) 31.6 32.0-36.5 MEAN CORPUSCULAR HGB CONC eCW1 ([facility]) 13.4 11.5-14.5 RED CELL DISTRIBUTION WID TH eCW1 ([facility]) 30.1 27.0-33.0 MEAN CORPUSCULAR HEMOGLOB IN eCW1 ([facility]) 33.2 24.0-44.0 LYMPH % eCW1 ([facility]) 277 150-450 PLATELET COUNT, AUTOMATED eCW1 ([facility]) 53.0 36.0-66.0 NEUTROPHILS % eCW1 ([facility]) 9.8 0.0-5.0 MONO % eCW1 ([facility]) 2.9 1.5-5.0 LYMPH # eCW1 ([facility]) 0.9 0.0-1.0 BASO % eCW1 ([facility]) 2.5 0.0-3.0 EOS % eCW1 ([facility]) 4.6 1.5-8.5 NEUTROPHILS # eCW1 ([facility]) 0.1 0.0-0.2 BASO # eCW1 ([facility]) 0.2 0.0-0.5 EOS # eCW1 ([facility]) 0.9 0.0-0.8 MONO # eCW1 ([facility]) ID Date Data Source [id number] 07/03/2020 12:00:00 AM EST [facility] Name Value Range Interpretation Code Description Data Genna rce(s) Supporting Document(s) 2019-nCoV RNA XXX KEISHA+probe-Imp [place] This lab was ordered by [facility] and reported by [facility] ID Date Data Source [id number] 07/30/2019 12:00:00 AM EST eCW1 ([facility]) Name Value Range Interpretation Code Description Data Genna rce(s) Supporting Document(s) Hemoglobin A1c/Hemoglobin.total in Blood 7.1 HEMOGLOBIN A1c eCW1 ([facility]) Procedure Social History Code Duration Value Status Description Data Source(s ) Smoking 07/04/2020 12:00:00 AM EST Never Smoker completed Never S moker eCW1 ([facility]) Smoking 07/04/2020 12:00:00 AM EST Never Smoker completed Never S moker eCW1 ([facility]) Smoking 07/04/2020 12:00:00 AM EST Never Smoker completed Never S moker eCW1 ([facility]) Smoking 07/04/2020 12:00:00 AM EST Never Smoker completed Never S moker eCW1 ([facility]) Smoking 01/06/2020 12:00:00 AM EDT Never Smoker completed Never S moker eCW1 ([facility]) Smoking 01/06/2020 12:00:00 AM EDT Never Smoker completed Never S moker eCW1 ([facility]) Smoking 08/24/2019 12:00:00 AM EST Patient has never smoked co mpleted Patient has never smoked MEDENT ([facility], [facility]) Vital Signs ID Date Data Source UNK Name Value Range Interpretation Code Description Data Source(s) Diastolic blood pressure 78 mm[Hg] 78 mm[Hg] eCW1 ([facility]) Systolic blood pressure 142 mm[Hg] 142 mm[Hg] e CW1 ([facility]) Body temperature 97.5 [degF] 97.5 [degF] eCW1 ( [facility]) Respiratory rate 18 /min 18 /min eCW1 ([facility]) Heart rate 75 /min 75 /min eCW1 ([facility]) Body mass index (BMI) [Ratio] 39.23 kg/m2 39.23 kg/m2 W1 ([facility]) Body height 63.5 [in_i] 63.5 [in_i] eCW1 ([facility]) Body weight 225 [lb_av] 225 [lb_av] eCW1 ([facility]) Body mass index (BMI) [Ratio] 36.0 kg/m2 36.0 k g/m2 MEDENT ([facility], [facility]) Body height 64 [in_i] 64 [in_i] MEDENT ([facility], [facility]) 5'4" Body weight 210.00 [lb_av] 210.00 [lb_av] MEDEN T ([facility], [facility]) Body temperature 97.7 [degF] 97.7 [degF] MEDENT ([facility]) Oxygen saturation in Arterial blood by Pulse oximetry 99 % 99 % MEDENT ([facility], [facility]) Respiratory rate 16 /min 16 /min MEDENT ( [facility], [facility]) Heart rate 78 /min 78 /min MEDENT ([facility], [facility]) Diastolic blood pressure 80 mm[Hg] 80 mm[Hg] MEDENT ([facility], [facility]) Systolic blood pressure 149 mm[Hg] 149 mm[Hg] M EDENT ([facility], [facility]) Diastolic blood pressure 82 mm[Hg] 82 mm[Hg] eCW1 ([facility]) Systolic blood pressure 144 mm[Hg] 144 mm[Hg] e CW1 ([facility]) Body temperature 98.4 [degF] 98.4 [degF] eCW1 ( [facility]) Respiratory rate 18 /min 18 /min eCW1 ([facility]) Heart rate 59 /min 59 /min eCW1 ([facility]) Body mass index (BMI) [Ratio] 38.70 kg/m2 38.70 kg/m2 W1 ([facility]) Body height 63.5 [in_i] 63.5 [in_i] eCW1 ([facility]) Body weight 222 [lb_av] 222 [lb_av] eCW1 ([facility]) Diastolic blood pressure 87 mm[Hg] 87 mm[Hg] eCW1 ([facility]) Systolic blood pressure 145 mm[Hg] 145 mm[Hg] e CW1 ([facility]) Body temperature 98.6 [degF] 98.6 [degF] eCW1 ( [facility]) Respiratory rate 18 /min 18 /min eCW1 ([facility]) Heart rate 57 /min 57 /min eCW1 ([facility]) Body mass index (BMI) [Ratio] 38.25 kg/m2 38.25 kg/m2 eCW1 ([facility]) Body height 63.5 [in_us] 63.5 [in_us] eCW1 ([facility]) Body weight Measured 219.4 [lb_av] 219.4 [lb_av ] eCW1 ([facility]) Body mass index (BMI) [Ratio] 36.0 kg/m2 36.0 k g/m2 MEDENT ([facility], [facility]) Body height 64 [in_i] 64 [in_i] MEDENT ([facility], [facility]) 5'4" Body weight 210.00 [lb_av] 210.00 [lb_av] MEDEN T ([facility], [facility]) Body temperature 98.2 [degF] 98.2 [degF] MEDENT ([facility], [facility]) Oxygen saturation in Arterial blood by Pulse oximetry 95 % 95 % MEDENT ([facility], [facility]) Respiratory rate 18 /min 18 /min MEDENT ( [facility], [facility]) Heart rate 58 /min 58 /min MEDENT ([facility]) Diastolic blood pressure 86 mm[Hg] 86 mm[Hg] MEDENT ([facility], [facility]) Systolic blood pressure 160 mm[Hg] 160 mm[Hg] M EDENT ([facility], [facility]) Diastolic blood pressure 80 mm[Hg] 80 mm[Hg] eCW1 ([facility]) Systolic blood pressure 154 mm[Hg] 154 mm[Hg] e CW1 ([facility]) Body temperature 98.2 [degF] 98.2 [degF] eCW1 ( [facility]) Respiratory rate 18 /min 18 /min eCW1 ([facility]) Heart rate 61 /min 61 /min eCW1 ([facility]) Body mass index (BMI) [Ratio] 38.25 kg/m2 38.25 kg/m2 eCW1 ([facility]) Body height 63.5 [in_us] 63.5 [in_us] eCW1 ([facility]) Body weight Measured 219.4 [lb_av] 219.4 [lb_av ] eCW1 ([facility]) Diastolic blood pressure 72 mm[Hg] 72 mm[Hg] eCW1 ([facility]) Systolic blood pressure 120 mm[Hg] 120 mm[Hg] e CW1 ([facility]) Body temperature 97.5 [degF] 97.5 [degF] eCW1 ( [facility]) Respiratory rate 18 /min 18 /min eCW1 ([facility]) Heart rate 68 /min 68 /min eCW1 ([facility]) Body mass index (BMI) [Ratio] 38.11 kg/m2 38.11 kg/m2 eCW1 ([facility]) Body height 63.5 [in_us] 63.5 [in_us] eCW1 ([facility]) Body weight Measured 218.6 [lb_av] 218.6 [lb_av ] eCW1 ([facility]) Patient Treatment Plan of Care Planned Activity Planned Date Details Description Data Source (s) Tamsulosin hydrochloride 0.4 MG Oral Capsule [Flomax] 09/12/2020 12:00:00 AM EST eCW1 ([facility]) Tamsulosin hydrochloride 0.4 MG Oral Capsule [Flomax] 09/12/2020 12:00:00 AM EST eCW1 ([facility]) tolterodine tartrate 2 MG Oral Tablet 10/22/2019 12:00:00 AM EDT eCW1 ([facility]) Myrbetriq 50 MG 10/08/2019 12:00:00 AM EDT eCW1 ([facility]) Oxybutynin Chloride 5 MG 08/12/2019 12:00:00 AM EST eCW1 ([facility])
--- OUTSIDE RECORDS SUMMARY | 2020-09-21 09:55 | CCD ---
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 Active 3697310 Problem Gastro-esophageal reflux disease without esophagitis K21.9 Active 715978248 Problem Migraine, unspecified, not intractable, without status migrainosus G43.909 Active 44519766 Problem Major depressive disorder, single episode, unspecified F32.9 Active 81737311 Problem Morbid (severe) obesity due to excess calories E66 .01 Active 417990673 Problem Urinary incontinence R32 Active 006379788 Problem Essential (primary) hypertension I10 Active 72705556 Problem Mixed hyperlipidemia E78.2 Active 441096424 Problem Atherosclerotic heart diseas e of [place] coronary artery without angina pectoris I25.10 Active 871334781144766 Problem Vitamin D deficiency, unspecified E55.9 Active 29073372 Problem Hypothyroidism, unspecified E03.9 Active 4093 0008 Problem Type 2 diabetes mellitus wit hout complication, without long-term current use of insulin E11.9 Active 979420157 Problem Kidney stone N20.0 Active 45441585 ALLERGIES Allergen (clinical drug ingredient) Drug/Non Drug Allergy do cumented on EMR Reaction Allergy Type Onset Date Status cholecalciferol Vitamin D(NDC Code:[address]-33) upset stomach Drug Allergy Active fenofibrate Tricor(NDC Code:[address]-14) (FENOFIBRATE) LOW B/P pass out Drug Allergy Active air freshener trouble breathing Non Drug Allergy Active ENCOUNTERS from 1950 to 2020-07-07 Encounter Location Date Provider Diagnosis [facility] [place] [address] [place] [address] Jun, Mar caitlin Gomez Type 2 diabetes mellitus without complication, without long-term current use of insulin E11.9 ; Atherosclerotic heart disease of [place] coronary artery without angina pectoris I25.10 ; Essential (primary) hypertension I10 ; Gastro- esophageal reflux disease without esophagitis K21.9 ; Major depressive disorder, single episode, unspecified F32.9 ; Hypothyroidism, unspecified E03.9 ; Vitamin D deficiency, unspecified E55.9 ; Morbid (severe) obesity due to excess calories E66.01 and Mixed hyperlipidemia E78.2 IMMUNIZATIONS Vaccine Route Administration Date Status Pneumococcal Adult 0.5mL (Pneumovax 23) IM Intramuscular Sep 23, 2015 Administered TDAP 0.5mL (Boostrix) IM Intramuscular Feb 27, 2016 Administe red Pneumococcal 0.5mL (Prevnar 13) IM Intramuscular Mar 16, 2015 Administered SOCIAL HISTORY Tobacco Use: Social History Observation Description Date Details (start date - stop date) Never Smoker Sex Assigned At : Social History Observation Description Sex Assigned At Unknown Education: Question Answer Notes Level of Education: GED Audit Question Answer Notes Total Score: 0 Interpretation: Alcohol Education Baptism: Question Answer Notes Baptism NONE Sexual Hx: Question Answer Notes Had [...] REASON FOR REFERRAL No Information VITAL SIGNS Weight 225 lbs Jun, Height 63.5 in Jun, BMI 39.23 kg/m2 Jun, Heart Rate 75 /min Jun, Respiratory Rate 18 /min Jun, Temperature 97.5 degrees Fahrenheit Jun, Oximetry 93 Jun, Blood pressure systolic 142 mm Hg Jun, Blood pressure diastolic 78 mm Hg Jun, MEDICATIONS Medication SIG (Take, Route, Frequency, Duration) Notes Start Da te End Date Status Glucometer as directed _ E11.9 for 30 day(s) Jul, Active BuPROPion HCl ER (SR) 150 MG 1 tablet Orally Twice a day for 90 Active Protonix 40 MG 1 tablet Orally Once a day for 90 days Active Cetirizine HCl 10 MG 1 tablet Orally Once a day for 30 day(s) Active AmLODIPine Besylate 5 MG 1 tablet Orally Once a day for 90 days Active Chito Aspirin EC Low Dose 81 MG 1 tablet Orally Once a day Active Levothyroxine Sodium 75 MCG 1 tablet Orally Once a day for 90 Active Losartan Potassium 50 MG 1 tablet Orally Once a day for 90 Active Crestor 40 MG 1 tablet Orally Once a day for 90 Active Vitamin B Complex - as directed Orally Active Oxybutynin Chloride 5 MG 1 tablet Orally Twice a day for 30 day( s) Jul, Active Pantoprazole Sodium 40 MG 1 tablet Orally twice daily for 90 days Active Myrbetriq 50 MG 1 tablet Orally Once a day for 30 Days Sep, Active Tolterodine Tartrate 2 MG 1 tablet Orally Twice a day for 30 Active Lancets - as directed subcutaneously twice daily, E11.9 fo r 30 day(s) Jul, Active Metformin HCl 1000 MG 1 tablet with meals Orally twice daily for 90 Active Nitroglycerin 0.4 MG 1 tab Sublingual every 5 m as needed for CP, max 3 doses for 10 day(s) May, Active One touch ultra blue as directed subcutaneously twice daily, E11.9 for 5 day(s) Jul, Active PROCEDURES No Information RESULTS Component Value Reference Range CBC with Differential Reviewed date:07/05/2020 10:12:13 Interpretation: Performing Lab:[facility], [facility] [address] [facility] [address] , ,[place] [id number] WHITE BLOOD COUNT 8.7 4.0-10.0 RED BLOOD COUNT 4.52 4.00-5.40 HEMOGLOBIN 13.6 12.0-15.5 HEMATOCRIT 43.1 36.0-47.0 MEAN CORPUSCULAR VOLUME 95.4 80.0-96.0 MEAN CORPUSCULAR HEMOGLOBIN 30.1 27.0-33.0 MEAN CORPUSCULAR HGB CONC 31.6 32.0-36.5 RED CELL DISTRIBUTION WIDTH 13.4 11.5-14.5 PLATELET COUNT, AUTOMATED 277 150-450 NEUTROPHILS % 53.0 36.0-66.0 LYMPH % 33.2 24.0-44.0 MONO % 9.8 0.0-5.0 EOS % 2.5 0.0-3.0 BASO % 0.9 0.0-1.0 NEUTROPHILS # 4.6 1.5-8.5 LYMPH # 2.9 1.5-5.0 MONO # 0.9 0.0-0.8 EOS # 0.2 0.0-0.5 BASO # 0.1 0.0-0.2 Comprehensive Metabolic Profile (CMP) Reviewed date:07/05/2020 10:12:13 Interpretation: Performing Lab:[facility] [address] [facility] [address] , [place] [address] GLUCOSE, FASTING 156 70-100 BLOOD UREA NITROGEN 16 7-18 CREATININE FOR GFR 0.89 0.55-1.30 GLOMERULAR FILTRATION RATE > 60.0 >39 SODIUM LEVEL 141 136-145 POTASSIUM SERUM 4.1 3.5-5.1 CHLORIDE LEVEL 109 98-107 CARBON DIOXIDE LEVEL 28 21-32 CALCIUM LEVEL 9.7 8.8-10.2 AST/SGOT 41 7-37 ALT/SGPT 71 12-78 ALKALINE PHOSPHATASE 138 45-117 BILIRUBIN,TOTAL 0.4 0.2-1.0 TOTAL PROTEIN 7.3 6.4-8.2 ALBUMIN 3.8 3.2-5.2 ALBUMIN/GLOBULIN RATIO 1.1 1.2-2.2 LIPID PANEL (CARDIAC RISK) Reviewed date:07/05/2020 10:12:13 Interpretation: Performing Lab:[facility] [address] [facility] [address] , ,[place] [address] TRIGLYCERIDES LEVEL 145 <150 CHOLESTEROL LEVEL 124 <200 HDL CHOLESTEROL 50 >40 LDL CHOLESTEROL 45 <100 NON-HDL-C 74 CHOLESTEROL RISK RATIO 2.480 <5 VITAMIN D 25-HYDROXY Reviewed date:07/05/2020 10:12:13 Interpretation: Performing Lab:[facility] [address] [facility] [address] , ,[facility] TOTAL 25([place]) VITAMIN D 27.3 30.0-100.0 TSH Reviewed date:07/05/2020 10:12:13 Interpretation: Performing Lab:[facility], [facility] [address] [facility] [address] , ,[facility] THYROID STIMULATING HORMONE 2.450 0.358-3.740 MICROALBUMIN RANDOM Reviewed date:07/05/2020 10:12:13 Interpretation: Performing Lab:[facility], [facility] [address] [facility] [address] , ,[facility] CREATININE, URINE 192.0 MALB URINE SIEMENS 20.6 BAILEY/CREAT RATIO 10.7 0.0-30.0 REASON FOR VISIT red toyats by the street/4 month MEDICAL (GENERAL) HISTORY Type Description Date Medical History Coronary artery disease - s/ p [place] 2006, has refused cardio referral until 05/15, [...] stent 2006 Surgical History Colonoscopy, 2002 - [facility], normal, repeated 10/2014 - () - normal, repeat 3 years due to suboptimal prep. Surgical History EGD - 2002 - [facility], mild GERD Surgical History stent removal left side on a string Surgical History ureteroscopy left stent palcement 2018 Surgical History kidney stone 08/2018 Hospitalization History surgery Hospitalization History myocardial infarction x2 Goals Section No Information Health Concerns No Information MEDICAL EQUIPMENT No Information MENTAL STATUS No Information FUNCTIONAL STATUS No Information ASSESSMENTS Encounter Date Diagnosis Assessment Notes Treatment Notes Treatm ent Clinical Notes Jun, Type 2 diabetes mellitus wit hout complication, without long-term current use of insulin (ICD-10 - E11.9) Due for BW. Jun, Atherosclerotic heart diseas e of [place] coronary artery without angina pectoris (ICD-10 - I25.10) 05/16 [facility], f/u in 1 year. Jun, Essential (primary) hypertension (ICD-10 - I10) Pressures stable. EKG SB, NSTTW abn, follows with Cardio. , Pressures stable. EKG SB, NSTTW abn, follows with Cardio. Jun, Gastro-esophageal reflux dis ease without esophagitis (ICD-10 - K21.9) Symptoms controlled. Jun, Major depressive disorder, s mignon episode, unspecified (ICD-10 - F32.9) Moods controlled on current regimen. Jun, Hypothyroidism, unspecified (ICD-10 - E03.9) Due for BW. Jun, Vitamin D deficiency, unspecified (ICD-10 - E55. 9) Jun, Morbid (severe) obesity due to excess calories ( ICD-10 - E66.01) Pt was counselled on the importance of diet and exercise in maintaining a healthy weight and that patients weight currently poses a health risk. Pt verbalizes understanding Jun, Mixed hyperlipidemia (ICD-10 - E78.2) Due for BW. Jun, Other 11/10 colonoscopy , [facility], poor prep, repeat in 3 y - pt is currently refusing d/t cost, 07/2019 cont to decline. No indication for YOAN. Zoster 2014. Prevnar 03/12, P23 09/13. Tdap 02/27/16. 01/13 mammo, nl. 01/13 DEXA, - 2.3 R femoral neck, repeat in 2 years. [facility] 04/16 Flu. Shingrix done x2 at [facility] 2018 PLAN OF TREATMENT Treatment Notes Assessment Notes Clinical Notes Type 2 diabetes mellitus without complic ation, without long-term current use of insulin Due for BW. Atherosclerotic heart disease of [place] coronary arter y without angina pectoris 05/16 [facility], f/u in 1 year. Essential (primary) hypertension Pressures stable.n3/1 6 EKG SB, NSTTW abn, follows with Cardio. , Pressures stable.n3/16 EKG SB, NSTTW abn, follows with Cardio. Gastro-esophageal reflux disease without esophagitis Symptom s controlled. Major depressive disorder, single episode, unspecified Moods controlled on current regimen. Hypothyroidism, unspecified Due for BW. Morbid (severe) obesity due to excess calories Pt was counselled on the importance of diet and exercise in maintaining a healthy weight and that patients weight currently poses a health risk. Pt verbalizes understanding Mixed hyperlipidemia Due for BW. Next Appt Details BW before, 6 m AWV Reason: Insurance Providers Payer Name Payer Address Payer Phone Insured Name Patient Relati onship to Insured Coverage Start Date Coverage End Date [facility] [address] [facility] [id number] RIDDHI GARZA
--- OUTSIDE RECORDS SUMMARY | 2020-09-21 09:55 | CCD ---
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 Active 5131777 Problem Gastro-esophageal reflux disease without esophagitis K21.9 Active 255271267 Problem Migraine, unspecified, not intractable, without status migrainosus G43.909 Active 37823114 Problem Major depressive disorder, single episode, unspecified F32.9 Active 81500849 Problem Morbid (severe) obesity due to excess calories E66 .01 Active 851593647 Problem Urinary incontinence R32 Active 845869898 Problem Essential (primary) hypertension I10 Active 88686203 Problem Mixed hyperlipidemia E78.2 Active 833188664 Problem Atherosclerotic heart diseas e of [place] coronary artery without angina pectoris I25.10 Active 335164375987723 Problem Vitamin D deficiency, unspecified E55.9 Active 52108750 Problem Hypothyroidism, unspecified E03.9 Active 4093 0008 Problem Type 2 diabetes mellitus wit hout complication, without long-term current use of insulin E11.9 Active 559013703 Problem Kidney stone N20.0 Active 19794837 ALLERGIES Allergen (clinical drug ingredient) Drug/Non Drug Allergy do cumented on EMR Reaction Allergy Type Onset Date Status cholecalciferol Vitamin D(NDC Code:[address]-04) upset stomach Drug Allergy Active fenofibrate Tricor(NDC Code:[address]-71) (FENOFIBRATE) LOW B/P pass out Drug Allergy Active air freshener trouble breathing Non Drug Allergy Active ENCOUNTERS from 1950 to 2020-08-24 Encounter Location Date Provider Diagnosis [facility] [address] [address] [place] [address] Jul, [place] Gomez IMMUNIZATIONS Vaccine Route Administration Date Status Pneumococcal [...] Notes Total Score: 0 Interpretation: Alcohol Education Baptist: Question Answer Notes Baptist NONE Sexual Hx: Question Answer Notes Had [...] day(s) Jul, Active PROCEDURES No Information RESULTS No Results REASON FOR VISIT call back covid vaccine ? MEDICAL (GENERAL) HISTORY Type Description Date Medical History Coronary artery disease - s/ p [place] 2006, has refused cardio referral until 05/15, [...] stent 2006 Surgical History Colonoscopy, 2002 - [facility], normal, repeated 10/2014 - () - normal, repeat 3 years due to suboptimal prep. Surgical History EGD - 2002 - [facility], mild GERD Surgical History stent removal left side on a string Surgical History ureteroscopy left stent palcement 2018 Surgical History kidney stone 08/2018 Hospitalization History surgery Hospitalization History myocardial infarction x2 Goals Section No Information Health Concerns No Information MEDICAL EQUIPMENT No Information MENTAL STATUS No Information FUNCTIONAL STATUS No Information ASSESSMENTS No Information PLAN OF TREATMENT No Information Insurance Providers Payer Name Payer Address Payer Phone Insured Name Patient Relati onship to Insured Coverage Start Date Coverage End Date [facility] [address] [facility] [id number] RIDDHI GARZA
--- OUTSIDE RECORDS SUMMARY | 2020-09-21 09:55 | CCD ---
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 Active confirmed 8 271802 Problem Gastro-esophageal reflux disease without esophagitis K21.9 Active confirmed 347920240 Problem Migraine, unspecified, not intractable, without status migrainosus G43.909 Active confirmed 59141411 Problem Major depressive disorder, single episode, unspecified F32.9 Active confirmed 38834830 Problem Morbid (severe) obesity due to excess calories E66 .01 Active confirmed 876164707 Problem Urinary incontinence R32 Active confirmed 037228200 Problem Essential (primary) hypertension I10 Active conf irmed 96613195 Problem Mixed hyperlipidemia E78.2 Active confirmed 429873211 Problem Atherosclerotic heart diseas e of [place] coronary artery without angina pectoris I25.10 Active confirmed 634922320572436 Problem Vitamin D deficiency, unspecified E55.9 Active con firmed 43781180 Problem Hypothyroidism, unspecified E03.9 Active confirmed 63084160 Problem Type 2 diabetes mellitus wit hout complication, without long-term current use of insulin E11.9 Active confirmed 800081204 Problem Kidney stone N20.0 Active confirmed 9536282 7 ALLERGIES Allergen (clinical drug ingredient) Drug/Non Drug Allergy do cumented on EMR Reaction Allergy Type Onset Date Status cholecalciferol Vitamin D(NDC Code:[address]-77) upset stomach Drug Allergy Active fenofibrate Tricor(NDC Code:[address]-29) (FENOFIBRATE) LOW B/P pass out Drug Allergy Active air freshener trouble breathing Non Drug Allergy Active ENCOUNTERS from 1950 to 2020-09-16 Encounter Location Date Provider Diagnosis [facility] [address] [place] [address] 15 Aug Kwan Macdonald Flank pain R10.9 and Kidney stone N20.0 IMMUNIZATIONS Vaccine Route Administration Date Status Pneumococcal [...] Notes Total Score: 0 Interpretation: Alcohol Education Denominational: Question Answer Notes Denominational NONE Sexual Hx: Question Answer Notes Had [...] Days Sep, Active PROCEDURES No Information RESULTS Component Value Reference Range UA URINALYSIS Reviewed date:09/14/2020 13:39:19 Interpretation: Performing Lab:[facility] [address] [facility] [address] , ,[place] [address] URINE CULTURE Reviewed date:09/15/2020 11:39:05 Interpretation: Performing Lab:[facility] [address] [facility] [address] , ,[place] [address] REASON FOR VISIT possible kidney stones MEDICAL (GENERAL) HISTORY Type Description Date Medical History Coronary artery disease - s/ p [place] 2006, has refused cardio referral until 05/15, [...] stent 2006 Surgical History Colonoscopy, 2002 - [facility], normal, repeated 10/2014 - () - normal, repeat 3 years due to suboptimal prep. Surgical History EGD - 2002 - [facility], mild GERD Surgical History stent removal left side on a string Surgical History ureteroscopy left stent palcement 2018 Surgical History kidney stone 08/2018 Hospitalization History surgery Hospitalization History myocardial infarction x2 Goals Section No Information Health Concerns No Information MEDICAL EQUIPMENT No Information MENTAL STATUS No Information FUNCTIONAL STATUS No Information ASSESSMENTS Encounter Date Diagnosis Assessment Notes Treatment Notes Treatm ent Clinical Notes Aug, Flank pain (ICD-10 - R10.9) Aug, Kidney stone (ICD-10 - N20.0) PLAN OF TREATMENT Medication Medication Name Sig Start Date Stop Date Flomax 0.4 MG 1 capsule Orally Once a day for 30 day(s) Aug Treatment Notes Test Name Order Date CT ABD & Pelvis w/o Contrast 2020-09-12 Next Appt Details Provider Name:Herbert Mtz, 2020-09-23 08:30:00 AM, [address], [place], [address], Insurance Providers Payer Name Payer Address Payer Phone Insured Name Patient Relati onship to Insured Coverage Start Date Coverage End Date [facility] [address] [facility] [address] RIDDHI GRAZA
== END 2020-09-21 10:12 | disposition left against medical advice (07) ==
LOC: M ED 09:03
DX: R10.9 Unspecified abdominal pain (principal); E11.9 Type 2 diabetes mellitus without complications; E03.9 Hypothyroidism, unspecified; E78.5 Hyperlipidemia, unspecified; G47.30 Sleep apnea, unspecified; I25.10 Atherosclerotic heart disease of native coronary artery without angina pectoris; N20.0 Calculus of kidney; K76.0 Fatty (change of) liver, not elsewhere classified; R16.0 Hepatomegaly, not elsewhere classified; Z79.899 Other long term (current) drug therapy; Z79.84 Long term (current) use of oral hypoglycemic drugs; Z79.82 Long term (current) use of aspirin; Z88.8 Allergy status to other drugs, medicaments and biological substances

== ENCOUNTER → 2020-09-21 | Outpatient (CLI) | payer MEDICARE ==
[~2020-09-21] MED LIST changes: +LOSA50TA88
--- NOTE | 2020-09-21 11:13 | REP ---
INDICATION: FLANK PAIN. COMPARISON: 07/11/2018 TECHNIQUE: Renal stone protocol with coronal and sagittal window reconstructions. FINDINGS: CT abdomen: Lung bases show minor curvilinear fibro atelectatic change in the inferior lingular segment at the left base and in the right middle lobe anteriorly. These are unchanged. No effusion or acute infiltrate and no pulmonary nodule. There is some mild elevation of the right hemidiaphragm with hepatomegaly and a 21 cm liver vertical dimension in the mid clavicular line. Diffuse fatty infiltration of the liver is noted but the intensity of the fatty infiltration is less by attenuation measurements today. Left hepatic lobe mildly prominent. No biliary dilatation or ascites. Gallbladder without calcified stone or mass. Spleen unremarkable. Adrenal glands show some thickening of limbs, left more than right, but unchanged. Pancreas unremarkable. The aorta is without aneurysm but has some scattered calcifications. No periaortic, mesenteric or retroperitoneal pathologic sized lymphadenopathy. Small bowel loops are grossly unremarkable. The colon shows some scattered diverticula in the splenic flexure and the left side without diverticulitis or colitis. There is 2-3 mm stone lower pole left kidney and a 6 mm stone interpolar region the kidney neither causes obstruction or hydronephrosis. Left ureter shows normal course the bladder without dilatation or stone. The right kidney shows 1 punctate 2 x 3 mm calcification lower pole and is also without hydronephrosis or hydroureter. The ureter shows normal course the bladder without dilatation or stone. Bone windows show small marginal osteophytes in the upper lumbar and thoracic spine without compression deformity or destructive lesion. Posterior elements intact. Visualized ribs grossly intact. CT pelvis: Sacrum, SI joints, pelvis and hips show some degenerative changes at the hips with spurring from the femoral heads. No fracture or destructive lesion. There is no distal ureteral dilatation or stone. Bladder without wall thickening, stone or mass. Uterus absent the vaginal cuff intact. There is some minor diverticulosis of the sigmoid without diverticulitis. Appendix seen and grossly unremarkable. There is no umbilical, ventral or inguinal hernia. No inguinal pathologic sized adenopathy or pelvic lymphadenopathy. IMPRESSION: Nonobstructing nephrolithiasis with small calcifications seen in both kidneys. No hydronephrosis, hydroureter, ureteral stone, bladder calculi or mass. Diffuse fatty infiltration liver with hepatomegaly, the intensity of the fatty infiltration is diminished by CT attenuation measurements compared to the previous study. Liver size unchanged. No other new or significant finding. <Electronically signed by Al Sukumar > 09/21/20 [id number]
== END ==
LOC: M RAD 10:05
PROVIDERS: ATTEND Nurse Practitioner Family
DX: N20.0 Calculus of kidney (principal); K76.0 Fatty (change of) liver, not elsewhere classified; R16.0 Hepatomegaly, not elsewhere classified; R10.9 Unspecified abdominal pain

== ENCOUNTER → 2020-10-28 | Outpatient (CLI) | payer MEDICARE ==
[~2020-10-28] MED LIST changes: +LOSA50TA88
--- NOTE | 2020-10-28 09:40 | REP ---
INDICATION: UPPER ABDOMINAL PAIN, UNSPECIFIED COMPARISON: None. TECHNIQUE: Upright view of the chest with supine and upright views of the abdomen and pelvis. FINDINGS: Frontal upright view of the chest demonstrates no acute cardiopulmonary process or free air below the diaphragm to suspect pneumoperitoneum. Supine and upright views of the abdomen and pelvis demonstrate nonspecific bowel gas pattern without obstruction or perforation. No organomegaly. No abnormal calcifications. Skeletal structures normal for age. IMPRESSION: Nonspecific bowel gas pattern. <Electronically signed by Andrew Moreira > 10/28/20 0937
== END ==
LOC: M RAD 09:19
PROVIDERS: ATTEND Physician Assistant Medical
DX: R10.10 Upper abdominal pain, unspecified (principal)

== ENCOUNTER → 2021-01-05 | Outpatient (REF) | payer MEDICARE ==
[2021-01-05 14:07] LABS: BASO # 0.1 10^3/uL (0.0-0.2); BASO % 0.8 % (0.0-1.0); EOS # 0.2 10^3/uL (0.0-0.5); EOS % 2.3 % (0.0-3.0); HEMOGLOBIN 13.7 g/dl (12.0-15.5); LYMPH # 2.8 10^3/uL (1.5-5.0); LYMPH % 30.3 % (24.0-44.0); MEAN CORPUSCULAR HEMOGLOBIN 30.2 pg (27.0-33.0); MEAN CORPUSCULAR HGB CONC 31.9 g/dl (32.0-36.5); MEAN CORPUSCULAR VOLUME 94.7 fl (80.0-96.0); MONO % 10.6 % (2.0-8.0); NEUTROPHILS # 5.2 10^3/uL (1.5-8.5); NEUTROPHILS % 55.5 % (36.0-66.0); PLATELET COUNT, AUTOMATED 269 10^3/uL (150-450); RED BLOOD COUNT 4.54 10^6/uL (4.00-5.40); WHITE BLOOD COUNT 9.3 10^3/uL (4.0-10.0)
[2021-01-05 15:58] LABS: ALT/SGPT 68 U/L (12-78); BILIRUBIN,TOTAL 0.5 MG/DL (0.2-1.0); BLOOD UREA NITROGEN 24 MG/DL (7-18); CALCIUM LEVEL 9.5 MG/DL (8.8-10.2); CARBON DIOXIDE LEVEL 29 MEQ/L (21-32); CHLORIDE LEVEL 105 MEQ/L (98-107); CHOLESTEROL LEVEL 118 MG/DL (<200); CHOLESTEROL RISK RATIO 2.458 (<5); CREATININE FOR GFR 0.92 MG/DL (0.55-1.30); FREE T4 1.21 NG/DL (0.76-1.46); GLOMERULAR FILTRATION RATE > 60.0 (>39); GLUCOSE, FASTING 137 MG/DL (70-100); HDL CHOLESTEROL 48 MG/DL (>40); LDL CHOLESTEROL 45 MG/DL (<100); NON-HDL-C 70 MG/DL; POTASSIUM SERUM 4.9 MEQ/L (3.5-5.1); SODIUM LEVEL 142 MEQ/L (136-145); TOTAL 25(OH) VITAMIN D 47.6 NG/ML (30.0-100.0); TOTAL PROTEIN 7.4 GM/DL (6.4-8.2); TRIGLYCERIDES LEVEL 125 MG/DL (<150)
[2021-01-05 18:31] LABS: HEMOGLOBIN A1c 6.7 %
== END ==
LOC: M SFHCADAM 09:43
PROVIDERS: ATTEND Physician Assistant Medical
DX: I25.10 Atherosclerotic heart disease of native coronary artery without angina pectoris (principal); E03.9 Hypothyroidism, unspecified; E55.9 Vitamin D deficiency, unspecified; E66.01 Morbid (severe) obesity due to excess calories; E11.9 Type 2 diabetes mellitus without complications

== ENCOUNTER → 2021-01-06 | Outpatient (CLI) | payer MEDICARE ==
--- NOTE | 2021-01-08 04:23 | REP ---
INDICATION: COUGH COMPARISON: 08/04/2018 TECHNIQUE: PA and lateral. FINDINGS: The mediastinum and cardiac silhouette are normal. The lung miller are clear and without acute consolidation, effusion, or pneumothorax. The skeletal structures are intact and normal. IMPRESSION: No acute cardiopulmonary process. <Electronically signed by Andrew Moreira > 01/08/21 0419
== END ==
LOC: M ADAMS 14:44
PROVIDERS: ATTEND Physician Assistant Medical
DX: R05 Cough (principal)

== ENCOUNTER → 2021-03-08 | Outpatient (CLI) | payer MEDICARE ==
--- NOTE | 2021-03-08 09:27 | REP ---
INDICATION: FATTY LIVER. COMPARISON: None. TECHNIQUE: Routine ultrasound FINDINGS: The gallbladder shows normal size. There is a 2 mm polyp. The wall is not thickened. The common bile duct measures 5 mm. The liver shows normal size. There is diffuse fatty infiltration. There is no mass. The right kidney measures 11 cm in length. There is no hydronephrosis, mass, cyst or calculus. IMPRESSION: 2 mm gallbladder polyp. Fatty liver. <Electronically signed by Edwin Wayne > 03/08/21 0999
== END ==
LOC: M RAD 08:53
PROVIDERS: ATTEND Physician Assistant Medical
DX: K76.0 Fatty (change of) liver, not elsewhere classified (principal); K82.4 Cholesterolosis of gallbladder

== ENCOUNTER → 2021-06-05 | Outpatient (CLI) | payer MEDICARE ==
--- NOTE | 2021-06-05 14:37 | REP ---
INDICATION: KIDNEY STONES. COMPARISON: 04/11/2020 FINDINGS: KUB shows the intestinal gas pattern to be nonspecific. The organ silhouettes insofar as delineated are unremarkable. There is no evidence of free intraperitoneal air. Once again, there are calcifications seen superimposed over the inferior pole region of the left kidney status quo. The inferior pole of the right kidney is obscured by bowel content. The upper pole is partially obscured by the right 12th rib. No abnormalities are identified. There is no change in the osseous structures. IMPRESSION: No significant change <Electronically signed by Ashu Salamanca > 06/05/21 0251
== END ==
LOC: M PLALAB 10:56
PROVIDERS: ATTEND Nurse Practitioner Family
DX: N20.0 Calculus of kidney (principal)

== ENCOUNTER → 2021-12-15 | Outpatient (REF) | payer MEDICARE ==
[~2021-12-15] MED LIST changes: +LOSA50TA28; -LOSA50TA88
[2021-12-15 17:04] LABS: APPEARANCE, URINE HAZY (CLEAR); BACTERIA, URINE AUTO NEGATIVE (NEGATIVE); BILIRUBIN, URINE AUTO NEGATIVE (NEGATIVE); BLOOD, URINE BLOOD NEGATIVE (NEGATIVE); COLOR, URINE YELLOW (YELLOW); GLUCOSE, URINE (UA) AUTO NEGATIVE (NEGATIVE); KETONE, URINE AUTO NEGATIVE (NEGATIVE); LEUKOCYTE ESTERASE, URINE AUTO 1+ (NEGATIVE); MUCUS, URINE SMALL (NEGATIVE); NITRITE, URINE AUTO NEGATIVE (NEGATIVE); PROTEIN, URINE AUTO NEGATIVE (NEGATIVE); RBC, URINE AUTO 1 /HPF (0-3); SPECIFIC GRAVITY URINE AUTO 1.016 (1.002-1.035); SQUAMOUS EPITHELIAL CELL UR AU 0 /HPF (0-6); UROBILINOGEN, URINE AUTO 0.2 mg/dL (0.0-2.0); WBC, URINE AUTO 7 /HPF (0-3)
[2021-12-15 17:32] LABS: ALBUMIN 3.9 GM/DL (3.2-5.2); ALT/SGPT 45 U/L (12-78); BILIRUBIN,TOTAL 0.5 MG/DL (0.2-1.0); BLOOD UREA NITROGEN 15 MG/DL (7-18); CALCIUM LEVEL 9.5 MG/DL (8.8-10.2); CARBON DIOXIDE LEVEL 30 MEQ/L (21-32); CHLORIDE LEVEL 109 MEQ/L (98-107); CHOLESTEROL LEVEL 121 MG/DL (<200); CREATININE FOR GFR 0.78 MG/DL (0.55-1.30); GLOMERULAR FILTRATION RATE > 60.0 (>39); GLUCOSE, FASTING 109 MG/DL (70-100); HDL CHOLESTEROL 55 MG/DL (>40); LDL CHOLESTEROL 46 MG/DL (<100); NON-HDL-C 66 MG/DL; POTASSIUM SERUM 4.2 MEQ/L (3.5-5.1); SODIUM LEVEL 143 MEQ/L (136-145); TOTAL PROTEIN 7.2 GM/DL (6.4-8.2); TRIGLYCERIDES LEVEL 102 MG/DL (<150)
[2021-12-15 17:36] LABS: MALB URINE SIEMENS 19.5 MG/L; MAU/CREAT RATIO 15.3 MCG/MG (0.0-30.0)
[2021-12-15 18:06] LABS: HEMOGLOBIN A1c 6.8 %
[2021-12-18 10:51] LABS: FOLATE > 24.0 NG/ML; VITAMIN B12 LEVEL 276 PG/ML
== END ==
LOC: M SFHCADAM 13:58
PROVIDERS: ATTEND Physician Assistant Medical
DX: E03.9 Hypothyroidism, unspecified (principal); E55.9 Vitamin D deficiency, unspecified; E11.9 Type 2 diabetes mellitus without complications; E53.8 Deficiency of other specified B group vitamins; R82.998 Other abnormal findings in urine

== ENCOUNTER 2022-02-26 19:57 | Emergency (ER) | payer MEDICARE ==
[~2022-02-26] VITALS: Ht 165.1 cm; Wt 97.2 kg
[2022-02-26] MEDS ORDERED: TOLT2CAP4 PO (20:05)
[2022-02-26] MEDS ORDERED: PEPT262C2 PO (20:05)
[2022-02-26 22:28] LABS: BASO # 0.1 10^3/uL (0.0-0.2); BASO % 0.6 % (0.0-1.0); EOS # 0.2 10^3/uL (0.0-0.5); EOS % 2.2 % (0.0-3.0); HEMATOCRIT 40.5 % (36.0-47.0); HEMOGLOBIN 13.1 g/dl (12.0-15.5); LYMPH # 4.1 10^3/uL (1.5-5.0); LYMPH % 37.9 % (24.0-44.0); MEAN CORPUSCULAR HEMOGLOBIN 29.8 pg (27.0-33.0); MEAN CORPUSCULAR HGB CONC 32.3 g/dl (32.0-36.5); MONO # 1.2 10^3/uL (0.0-0.8); MONO % 11.1 % (2.0-8.0); NEUTROPHILS # 5.2 10^3/uL (1.5-8.5); NEUTROPHILS % 47.8 % (36.0-66.0); PLATELET COUNT, AUTOMATED 270 10^3/uL (150-450); WHITE BLOOD COUNT 10.9 10^3/uL (4.0-10.0)
[2022-02-26] MEDS ORDERED: NS 500 ML IV ONE (22:45)
[2022-02-26 22:49] LABS: ALBUMIN 3.8 GM/DL (3.2-5.2); ALT/SGPT 47 U/L (12-78); BILIRUBIN,DIRECT 0.2 MG/DL (0.0-0.2); BILIRUBIN,TOTAL 0.7 MG/DL (0.2-1.0); BLOOD UREA NITROGEN 15 MG/DL (7-18); CALCIUM LEVEL 9.9 MG/DL (8.8-10.2); CARBON DIOXIDE LEVEL 27 MEQ/L (21-32); CHLORIDE LEVEL 108 MEQ/L (98-107); CREATININE FOR GFR 0.93 MG/DL (0.55-1.30); GLOMERULAR FILTRATION RATE > 60.0 (>39); GLUCOSE, FASTING 97 MG/DL (70-100); LIPASE 163 U/L (73-393); POTASSIUM SERUM 4.1 MEQ/L (3.5-5.1); SODIUM LEVEL 141 MEQ/L (136-145); TOTAL PROTEIN 7.3 GM/DL (6.4-8.2)
[2022-02-26] MEDS ORDERED: ISOVUE-370 76% 100ML VIAL As Ordered ONE (22:52)
[2022-02-27] MEDS ORDERED: metroNIDAZOLE (FLAGYL) 500MG TABLET PO ONE (00:35)
[2022-02-27] MEDS ORDERED: CIPROFLOXACIN 500MG TABLET PO ONE (00:35)
[2022-02-27] MEDS ORDERED: METR-265 PO (00:38)
[2022-02-27] MEDS ORDERED: CIPR-249 PO (00:38)
[2022-02-27 00:39] VITALS: BP 172/73
== END 2022-02-27 00:53 | disposition home or self-care (01) ==
LOC: M ED 19:57
DX: K57.32 Diverticulitis of large intestine without perforation or abscess without bleeding (principal); K44.9 Diaphragmatic hernia without obstruction or gangrene; I10 Essential (primary) hypertension; E78.5 Hyperlipidemia, unspecified; K21.9 Gastro-esophageal reflux disease without esophagitis; I25.2 Old myocardial infarction; I25.10 Atherosclerotic heart disease of native coronary artery without angina pectoris; Z88.8 Allergy status to other drugs, medicaments and biological substances; Z79.82 Long term (current) use of aspirin
CPT/HCPCS: 74177; 80048; 80076; 83690; 85025; 96360; 96361; 99284; Q9967

== ENCOUNTER → 2022-02-28 | Outpatient (REF) | payer MEDICARE ==
[~2022-02-28] MED LIST changes: +CIPR-249 PO; +METR-265 PO; +PEPT262C2 PO; +TOLT2CAP4 PO
== END ==
LOC: M LAB REF 14:46
PROVIDERS: ATTEND Physician Assistant Medical
DX: R19.7 Diarrhea, unspecified (principal)

== ENCOUNTER 2022-08-23 04:21 | Emergency (ER) | payer MEDICARE ==
[~2022-08-23] VITALS: Ht 165.1 cm; Wt 100.0 kg
[2022-08-23 05:01] LABS: BASO # 0.1 10^3/uL (0.0-0.2); BASO % 0.4 % (0.0-1.0); EOS # 0.2 10^3/uL (0.0-0.5); HEMATOCRIT 39.5 % (36.0-47.0); HEMOGLOBIN 12.7 g/dl (12.0-15.5); LYMPH # 2.9 10^3/uL (1.5-5.0); LYMPH % 17.4 % (24.0-44.0); MEAN CORPUSCULAR HEMOGLOBIN 28.3 pg (27.0-33.0); MEAN CORPUSCULAR HGB CONC 32.2 g/dl (32.0-36.5); MEAN CORPUSCULAR VOLUME 88.2 fl (80.0-96.0); MONO % 11.8 % (2.0-8.0); NEUTROPHILS # 11.5 10^3/uL (1.5-8.5); NEUTROPHILS % 68.9 % (36.0-66.0); PLATELET COUNT, AUTOMATED 275 10^3/uL (150-450); RED BLOOD COUNT 4.48 10^6/uL (4.00-5.40); WHITE BLOOD COUNT 16.7 10^3/uL (4.0-10.0)
[2022-08-23 05:19] LABS: MAGNESIUM LEVEL 1.6 MG/DL (1.8-2.4)
[2022-08-23 05:21] LABS: ALBUMIN 3.7 G/DL (3.2-5.2); ALKALINE PHOSPHATASE 99 U/L (46-116); ALT/SGPT 35 U/L (7.0-40); AST/SGOT 25 U/L (<34); BLOOD UREA NITROGEN 13 MG/DL (9-23); CALCIUM LEVEL 9.1 MG/DL (8.3-10.6); CARBON DIOXIDE LEVEL 26 MMOL/L (20-31); CHLORIDE LEVEL 105 MMOL/L (98-107); CREATININE FOR GFR 0.74 MG/DL (0.55-1.30); GLOMERULAR FILTRATION RATE > 60.0 (>39); GLUCOSE, FASTING 138 MG/DL (74-106); POTASSIUM SERUM 3.9 MMOL/L (3.5-5.1); SODIUM LEVEL 140 MMOL/L (136-145); TOTAL PROTEIN 6.9 G/DL (5.7-8.2)
[2022-08-23] MEDS ORDERED: MORPHINE 4 MG/ML 1ML VIAL IV ONE (05:40)
[2022-08-23] MEDS ORDERED: ONDANSETRON 4MG 2ML VIAL IV ONE (06:00)
[2022-08-23] MEDS ORDERED: ISOVUE-370 76% 100ML VIAL As Ordered ONE (06:28)
[2022-08-23 09:15] VITALS: BP 164/82
[2022-08-23] MEDS ORDERED: CIPR-249 PO (09:40)
[2022-08-23] MEDS ORDERED: CIPROFLOXACIN 500MG TABLET PO ONE (09:40)
[2022-08-23] MEDS ORDERED: metroNIDAZOLE (FLAGYL) 500MG TABLET PO ONE (09:40)
[2022-08-23] MEDS ORDERED: METR-265 PO (09:40)
== END 2022-08-23 09:51 | disposition home or self-care (01) ==
LOC: EDBD 04:21 → M ED 04:21 → EDSEX 04:21 → M ED 09:51
DX: K57.30 Diverticulosis of large intestine without perforation or abscess without bleeding (principal); K76.0 Fatty (change of) liver, not elsewhere classified; K44.9 Diaphragmatic hernia without obstruction or gangrene; F32.A Depression, unspecified; E03.9 Hypothyroidism, unspecified; E78.5 Hyperlipidemia, unspecified; K21.9 Gastro-esophageal reflux disease without esophagitis; I10 Essential (primary) hypertension; E11.9 Type 2 diabetes mellitus without complications; Z88.8 Allergy status to other drugs, medicaments and biological substances; Z79.4 Long term (current) use of insulin; Z79.811 Long term (current) use of aromatase inhibitors; Z79.899 Other long term (current) drug therapy; Z79.2 Long term (current) use of antibiotics
CPT/HCPCS: 74177; 80053; 81000; 81015; 83605; 83735; 85025; 87040; 87086; 87486; 87581; 87633; 87798; 96374; 96375; 99284; J2405; Q9967

== ENCOUNTER → 2022-08-30 | Outpatient (CLI) | payer MEDICARE ==
[2022-08-30 17:35] LABS: BASO # 0.1 10^3/uL (0.0-0.2); BASO % 0.9 % (0.0-1.0); EOS # 0.3 10^3/uL (0.0-0.5); EOS % 2.4 % (0.0-3.0); HEMATOCRIT 43.1 % (36.0-47.0); HEMOGLOBIN 13.3 g/dl (12.0-15.5); LYMPH # 4.2 10^3/uL (1.5-5.0); LYMPH % 40.7 % (24.0-44.0); MEAN CORPUSCULAR HEMOGLOBIN 27.7 pg (27.0-33.0); MEAN CORPUSCULAR HGB CONC 30.9 g/dl (32.0-36.5); MEAN CORPUSCULAR VOLUME 89.8 fl (80.0-96.0); MONO # 1.2 10^3/uL (0.0-0.8); MONO % 11.7 % (2.0-8.0); NEUTROPHILS # 4.5 10^3/uL (1.5-8.5); NEUTROPHILS % 43.8 % (36.0-66.0); PLATELET COUNT, AUTOMATED 349 10^3/uL (150-450); WHITE BLOOD COUNT 10.3 10^3/uL (4.0-10.0)
[2022-08-30 18:24] LABS: BLOOD UREA NITROGEN 11 MG/DL (9-23); CALCIUM LEVEL 9.7 MG/DL (8.3-10.6); CARBON DIOXIDE LEVEL 29 MMOL/L (20-31); CHLORIDE LEVEL 104 MMOL/L (98-107); CREATININE FOR GFR 0.95 MG/DL (0.55-1.30); GLOMERULAR FILTRATION RATE > 60.0 (>39); GLUCOSE, FASTING 100 MG/DL (74-106); POTASSIUM SERUM 3.9 MMOL/L (3.5-5.1); SODIUM LEVEL 143 MMOL/L (136-145)
== END ==
LOC: M PLALAB 16:26
PROVIDERS: ATTEND Physician Assistant Medical
DX: K57.92 Diverticulitis of intestine, part unspecified, without perforation or abscess without bleeding (principal)

== ENCOUNTER → 2022-10-12 | Outpatient (CLI) | payer MEDICARE ==
[~2022-10-12] MED LIST changes: +BUPR-71 PO; +DOCU-153 PO; -LOSA50TA28; +LOSA50TA28 PO; +TOLT2TAB12 PO; +VITATAB73 PO
== END ==
LOC: M LABSMTC 07:50
PROVIDERS: ATTEND Anesthesiology
DX: Z01.812 Encounter for preprocedural laboratory examination (principal)

== ENCOUNTER 2022-10-17 09:53 | Day surgery (SDC) | payer MEDICARE ==
[~2022-10-17] VITALS: Ht 165.1 cm; Wt 90.0 kg
[~2022-10-17 09:53] MED LIST changes: +NS 1,000 ML IV ONE
[2022-10-17] MEDS ORDERED: propofoL 200 MG/20 ML VIAL As Ordered ONE (11:55)
[2022-10-17] MEDS ORDERED: LIDOCAINE 2% 100MG/5ML SDV (FOR ANES.) As Ordered ONE (11:55)
[2022-10-17] MEDS ORDERED: GLYCOPYRROLATE INJ 0.2 MG/ML 2 ML VIAL As Ordered ONE (12:00)
[2022-10-17 13:20] VITALS: BP 140/67
== END 2022-10-17 13:34 | disposition home or self-care (01) ==
LOC: M OPP 09:53
PROVIDERS: ATTEND Internal Medicine Gastroenterology
DX: Z12.11 Encounter for screening for malignant neoplasm of colon (principal); D12.6 Benign neoplasm of colon, unspecified; K64.8 Other hemorrhoids; K57.30 Diverticulosis of large intestine without perforation or abscess without bleeding; E03.9 Hypothyroidism, unspecified; I25.2 Old myocardial infarction; I10 Essential (primary) hypertension; G47.33 Obstructive sleep apnea (adult) (pediatric); E11.9 Type 2 diabetes mellitus without complications; E78.00 Pure hypercholesterolemia, unspecified; Z79.02 Long term (current) use of antithrombotics/antiplatelets; Z79.82 Long term (current) use of aspirin; Z79.84 Long term (current) use of oral hypoglycemic drugs; Z79.890 Hormone replacement therapy; Z79.899 Other long term (current) drug therapy; Z88.8 Allergy status to other drugs, medicaments and biological substances; Z87.19 Personal history of other diseases of the digestive system

== ENCOUNTER → 2023-02-12 | Outpatient (CLI) | payer MEDICARE ==
[~2023-02-12] MED LIST changes: -NS 1,000 ML IV ONE
[2023-02-12 15:59] LABS: BASO # 0.1 10^3/uL (0.0-0.2); BASO % 0.9 % (0.0-1.0); EOS # 0.2 10^3/uL (0.0-0.5); EOS % 2.6 % (0.0-3.0); HEMATOCRIT 39.4 % (36.0-47.0); HEMOGLOBIN 12.6 g/dl (12.0-15.5); LYMPH # 3.2 10^3/uL (1.5-5.0); MEAN CORPUSCULAR HEMOGLOBIN 28.8 pg (27.0-33.0); MEAN CORPUSCULAR VOLUME 90.2 fl (80.0-96.0); MONO % 10.9 % (2.0-8.0); NEUTROPHILS # 4.8 10^3/uL (1.5-8.5); NEUTROPHILS % 51.2 % (36.0-66.0); PLATELET COUNT, AUTOMATED 304 10^3/uL (150-450); RED BLOOD COUNT 4.37 10^6/uL (4.00-5.40); WHITE BLOOD COUNT 9.4 10^3/uL (4.0-10.0)
[2023-02-12 16:06] LABS: HEMOGLOBIN A1c 6.6 % (4.0-6.0)
[2023-02-12 16:14] LABS: CREATININE, URINE 130.1 MG/DL
[2023-02-12 16:15] LABS: MAU/CREAT RATIO 8.4 MCG/MG (0.0-30.0)
[2023-02-12 16:19] LABS: TOTAL 25(OH) VITAMIN D 25.3 NG/ML (20.0-100.0)
[2023-02-12 16:20] LABS: ALBUMIN 3.8 G/DL (3.2-5.2); ALKALINE PHOSPHATASE 89 U/L (46-116); ALT/SGPT 40 U/L (7.0-40); AST/SGOT 24 U/L (<34); BILIRUBIN,TOTAL 0.4 MG/DL (0.3-1.2); BLOOD UREA NITROGEN 14 MG/DL (9-23); CALCIUM LEVEL 9.6 MG/DL (8.3-10.6); CARBON DIOXIDE LEVEL 26 MMOL/L (20-31); CHLORIDE LEVEL 107 MMOL/L (98-107); CHOLESTEROL LEVEL 134 MG/DL (<200); CHOLESTEROL RISK RATIO 2.12 (<5); CREATININE FOR GFR 0.91 MG/DL (0.55-1.30); FREE T4 1.08 NG/DL (0.89-1.76); GLOMERULAR FILTRATION RATE > 60.0 (>39); GLUCOSE, FASTING 161 MG/DL (74-106); LDL CHOLESTEROL 40.8 MG/DL (<100); POTASSIUM SERUM 4.3 MMOL/L (3.5-5.1); SODIUM LEVEL 145 MMOL/L (136-145); TOTAL PROTEIN 6.9 G/DL (5.7-8.2); TRIGLYCERIDES LEVEL 151 MG/DL (<150)
[2023-02-12 16:22] LABS: THYROID STIMULATING HORMONE 1.956 uIU/ML (0.55-4.78)
== END ==
LOC: M PLALAB 13:50
PROVIDERS: ATTEND Physician Assistant Medical
DX: I25.10 Atherosclerotic heart disease of native coronary artery without angina pectoris (principal); I10 Essential (primary) hypertension; E03.9 Hypothyroidism, unspecified; E55.9 Vitamin D deficiency, unspecified; E78.2 Mixed hyperlipidemia; E53.8 Deficiency of other specified B group vitamins

== ENCOUNTER → 2023-06-17 | Outpatient (CLI) | payer MEDICARE ==
[2023-06-17 18:03] LABS: CK-MB VALUE MASS 1.8 NG/ML (<3.6)
[2023-06-17 18:04] LABS: MB/CK RELATIVE INDEX 2.46 (< OR =4)
== END ==
LOC: M ADAMS 12:20
PROVIDERS: ATTEND Family Medicine
DX: R07.89 Other chest pain (principal); R20.0 Anesthesia of skin; M19.012 Primary osteoarthritis, left shoulder; M47.892 Other spondylosis, cervical region

== ENCOUNTER → 2023-06-17 | Outpatient (REF) | payer MEDICARE ==
[2023-06-17 17:42] LABS: BASO # 0.1 10^3/uL (0.0-0.2); EOS # 0.2 10^3/uL (0.0-0.5); EOS % 2.4 % (0.0-3.0); HEMATOCRIT 42.8 % (36.0-47.0); HEMOGLOBIN 13.4 g/dl (12.0-15.5); LYMPH # 3.1 10^3/uL (1.5-5.0); LYMPH % 33.1 % (24.0-44.0); MEAN CORPUSCULAR HEMOGLOBIN 27.9 pg (27.0-33.0); MEAN CORPUSCULAR HGB CONC 31.3 g/dl (32.0-36.5); MONO # 0.9 10^3/uL (0.0-0.8); MONO % 9.5 % (2.0-8.0); NEUTROPHILS % 53.7 % (36.0-66.0); PLATELET COUNT, AUTOMATED 303 10^3/uL (150-450); RED BLOOD COUNT 4.81 10^6/uL (4.00-5.40); WHITE BLOOD COUNT 9.3 10^3/uL (4.0-10.0)
[2023-06-17 18:04] LABS: ALBUMIN 3.9 G/DL (3.2-5.2); ALKALINE PHOSPHATASE 92 U/L (46-116); ALT/SGPT 38 U/L (7.0-40); AST/SGOT 26 U/L (<34); BILIRUBIN,TOTAL 0.5 MG/DL (0.3-1.2); BLOOD UREA NITROGEN 16 MG/DL (9-23); CALCIUM LEVEL 9.5 MG/DL (8.3-10.6); CARBON DIOXIDE LEVEL 24 MMOL/L (20-31); CHLORIDE LEVEL 107 MMOL/L (98-107); CREATININE FOR GFR 0.74 MG/DL (0.55-1.30); GLOMERULAR FILTRATION RATE > 60.0 (>39); GLUCOSE, FASTING 127 MG/DL (74-106); POTASSIUM SERUM 3.9 MMOL/L (3.5-5.1); SODIUM LEVEL 142 MMOL/L (136-145)
== END ==
LOC: M SFHCADAM 12:13
PROVIDERS: ATTEND Family Medicine
DX: R07.89 Other chest pain (principal)

== ENCOUNTER → 2023-12-11 | Outpatient (REF) | payer MEDICARE ==
[~2023-12-11] MED LIST changes: -DOCU-153 PO; -ROSU40TA4 PO; +ROSU40TA63 PO; +STOO100C30 PO
[2023-12-11 18:58] LABS: THYROID STIMULATING HORMONE 1.577 uIU/ML (0.55-4.78)
[2023-12-11 18:59] LABS: ALBUMIN 3.9 G/DL (3.2-5.2); ALKALINE PHOSPHATASE 86 U/L (46-116); ALT/SGPT 41 U/L (7.0-40); AST/SGOT 23 U/L (<34); BILIRUBIN,TOTAL 0.4 MG/DL (0.3-1.2); BLOOD UREA NITROGEN 27 MG/DL (9-23); CALCIUM LEVEL 10.1 MG/DL (8.3-10.6); CARBON DIOXIDE LEVEL 29 MMOL/L (20-31); CHLORIDE LEVEL 111 MMOL/L (98-107); CHOLESTEROL LEVEL 125 MG/DL (<200); CHOLESTEROL RISK RATIO 2.26 (<5); GLOMERULAR FILTRATION RATE > 60.0 (>39); GLUCOSE, FASTING 98 MG/DL (74-106); HDL CHOLESTEROL 55.2 MG/DL (>40); LDL CHOLESTEROL 48.8 MG/DL (<100); NON-HDL-C 69.8 MG/DL; POTASSIUM SERUM 4.6 MMOL/L (3.5-5.1); SODIUM LEVEL 145 MMOL/L (136-145); TOTAL PROTEIN 6.9 G/DL (5.7-8.2); TRIGLYCERIDES LEVEL 105 MG/DL (<150)
[2023-12-11 19:01] LABS: VITAMIN B12 LEVEL 349 PG/ML (211-911)
[2023-12-11 19:11] LABS: HEMOGLOBIN A1c 6.3 % (4.0-6.0)
== END ==
LOC: M SFHCADAM 14:46
PROVIDERS: ATTEND Physician Assistant Medical
DX: I25.10 Atherosclerotic heart disease of native coronary artery without angina pectoris (principal); I10 Essential (primary) hypertension; E03.9 Hypothyroidism, unspecified; E11.9 Type 2 diabetes mellitus without complications; E53.8 Deficiency of other specified B group vitamins

== ENCOUNTER 2024-04-06 13:02 | Emergency (ER) | payer MEDICARE, OTHER ==
[~2024-04-06] VITALS: Ht 165.1 cm; Wt 94.8 kg
[~2024-04-06 13:02] MED LIST changes: -ROSU40TA63 PO; +ROSU40TA81 PO
[2024-04-06 15:07] LABS: BASO # 0.1 10^3/uL (0.0-0.2); EOS # 0.2 10^3/uL (0.0-0.5); EOS % 2.1 % (0.0-3.0); HEMATOCRIT 39.5 % (36.0-47.0); HEMOGLOBIN 12.7 g/dl (12.0-15.5); LYMPH % 33.3 % (24.0-44.0); MEAN CORPUSCULAR HEMOGLOBIN 27.9 pg (27.0-33.0); MEAN CORPUSCULAR HGB CONC 32.2 g/dl (32.0-36.5); MEAN CORPUSCULAR VOLUME 86.6 fl (80.0-96.0); MONO # 0.9 10^3/uL (0.0-0.8); MONO % 9.7 % (2.0-8.0); NEUTROPHILS # 4.8 10^3/uL (1.5-8.5); NEUTROPHILS % 53.6 % (36.0-66.0); PLATELET COUNT, AUTOMATED 258 10^3/uL (150-450); RED BLOOD COUNT 4.56 10^6/uL (4.00-5.40)
[2024-04-06 15:20] LABS: INR 1.07; PROTHROMBIN TIME 13.6 SECONDS (12.5-14.5)
[2024-04-06 15:27] LABS: LIPASE 37 U/L (12-53)
[2024-04-06 15:30] LABS: ALBUMIN 3.9 G/DL (3.2-5.2); ALKALINE PHOSPHATASE 92 U/L (46-116); ALT/SGPT 45 U/L (7.0-40); AST/SGOT 33 U/L (<34); BILIRUBIN,DIRECT 0.3 MG/DL (<0.4); BILIRUBIN,TOTAL 0.8 MG/DL (0.3-1.2); BLOOD UREA NITROGEN 16 MG/DL (9-23); CALCIUM LEVEL 9.9 MG/DL (8.3-10.6); CARBON DIOXIDE LEVEL 26 MMOL/L (20-31); CHLORIDE LEVEL 110 MMOL/L (98-107); CREATININE FOR GFR 0.89 MG/DL (0.55-1.30); GLOMERULAR FILTRATION RATE > 60.0 (>39); GLUCOSE, FASTING 101 MG/DL (74-106); POTASSIUM SERUM 4.5 MMOL/L (3.5-5.1); SODIUM LEVEL 143 MMOL/L (136-145); TOTAL PROTEIN 7.1 G/DL (5.7-8.2)
[2024-04-06] MEDS ORDERED: ISOVUE-370 76% 100ML VIAL As Ordered ONE (15:43)
[2024-04-06 16:27] VITALS: BP 161/72; TEMP 98; O2SAT 95
[2024-04-06] MEDS ORDERED: DICY-61 PO (17:10)
== END 2024-04-06 17:36 | disposition home or self-care (01) ==
LOC: M ED 13:02
DX: R10.9 Unspecified abdominal pain (principal); I25.10 Atherosclerotic heart disease of native coronary artery without angina pectoris; I25.2 Old myocardial infarction; E11.9 Type 2 diabetes mellitus without complications; I10 Essential (primary) hypertension; J45.909 Unspecified asthma, uncomplicated; E03.9 Hypothyroidism, unspecified; Z79.82 Long term (current) use of aspirin; Z79.84 Long term (current) use of oral hypoglycemic drugs; Z79.899 Other long term (current) drug therapy; Z88.8 Allergy status to other drugs, medicaments and biological substances
CPT/HCPCS: 74177; 80053; 81001; 82248; 83690; 85025; 85610; 86850; 86900; 86901; 87086; 93005; 99284; Q9967

== ENCOUNTER → 2024-08-10 | Outpatient (CLI) | payer OTHER ==
[~2024-08-10] MED LIST changes: +DICY-61 PO
== END ==
LOC: M RAD 08:10
PROVIDERS: ATTEND Physician Assistant Medical
DX: K76.0 Fatty (change of) liver, not elsewhere classified (principal); K80.20 Calculus of gallbladder without cholecystitis without obstruction

== ENCOUNTER → 2024-09-09 | Outpatient (CLI) | payer OTHER | LOC: M PLAIMG 09:42 → M PLALAB 09:42 | PROVIDERS: ATTEND Nurse Practitioner Family | DX: N20.0 Calculus of kidney (principal) ==

== ENCOUNTER 2024-11-14 02:59 | Observation (INO) | payer OTHER ==
[~2024-11-14] VITALS: Ht 165.1 cm; Wt 103.0 kg
[~2024-11-14 02:59] MED LIST changes: +BUPR150T15 PO; -BUPR1TAB53 PO; -FLOM0.4C39 PO; +TAMS-18 PO
[2024-11-14 03:45] LABS: BASO # 0.1 10^3/uL (0.0-0.2); BASO % 0.4 % (0.0-1.0); EOS # 0.1 10^3/uL (0.0-0.5); EOS % 0.5 % (0.0-3.0); HEMATOCRIT 40.4 % (36.0-47.0); HEMOGLOBIN 12.7 g/dl (12.0-15.5); KETONE, URINE AUTO RFX 1+ mg/dL (NEGATIVE); LEUKOCYTE ESTERASE UR AUTO RFX 1+ (NEGATIVE); LYMPH # 2.9 10^3/uL (1.5-5.0); LYMPH % 19.4 % (24.0-44.0); MEAN CORPUSCULAR HEMOGLOBIN 26.5 pg (27.0-33.0); MEAN CORPUSCULAR HGB CONC 31.4 g/dl (32.0-36.5); MEAN CORPUSCULAR VOLUME 84.2 fl (80.0-96.0); MONO # 1.8 10^3/uL (0.0-0.8); MONO % 12.5 % (2.0-8.0); MUCUS, URINE RFX SMALL (NEGATIVE); NEUTROPHILS # 9.8 10^3/uL (1.5-8.5); NEUTROPHILS % 66.8 % (36.0-66.0); NITRITE, URINE AUTO RFX NEGATIVE (NEGATIVE); PLATELET COUNT, AUTOMATED 296 10^3/uL (150-450); RBC, URINE AUTO RFX 39 /HPF (0-3); SQUAM EPITHELIAL CELL UR AURFX 0 /HPF (0-6); WBC, URINE AUTO RFX 15 /HPF (0-3); WHITE BLOOD COUNT 14.7 10^3/uL (4.0-10.0)
[2024-11-14 04:27] LABS: ALBUMIN 3.5 G/DL (3.2-5.2); BILIRUBIN,DIRECT 0.3 MG/DL (<0.4); BILIRUBIN,TOTAL 0.7 MG/DL (0.3-1.2); CALCIUM LEVEL 9.6 MG/DL (8.3-10.6); CREATININE FOR GFR 0.98 MG/DL (0.55-1.30); GLOMERULAR FILTRATION RATE 60.2 (>39)
[2024-11-14] MEDS: NS (Normal Saline) 0.9% 1,000 ML IV ONE (05:15)
[2024-11-14] MEDS: ONDANSETRON 4MG 2ML VIAL IV ONE (05:16)
[2024-11-14] MEDS: KETOROLAC 30 MG/ML 1ML VIAL IV ONE (05:16)
[2024-11-14] MEDS: TAMSULOSIN 0.4 MG CAP PO ONE (07:24)
[2024-11-14] MEDS: PIPERACILLIN/TAZOBACTAM SOD 4.5 GM in DEXTROSE 5% (D5W) ADV/MINI-BAG 50 ML IV ONE (07:25)
[2024-11-14] MEDS ORDERED: DEXTROSE 50% 50ML SYRINGE IV PRN (08:35)
[2024-11-14] MEDS ORDERED: GLUCOSE 4 GM CHEW PO PRN (08:35)
[2024-11-14] MEDS ORDERED: GLUCAGON INJ 1MG VIAL SC PRN (08:35)
[2024-11-14] MEDS ORDERED: MORPHINE 2 MG/ML 1ML VIAL IV PRN ×2 (08:40)
[2024-11-14] MEDS: amLODIPine 5 MG TAB PO SCH (09:00)
[2024-11-14 09:39] VITALS: BP 118/80; TEMP 97.5; O2SAT 96
[2024-11-14] MEDS: DOCUSATE SODIUM 100MG CAPSULE PO SCH (09:55)
[2024-11-14] MEDS: LR 1,000 ML IV SCH (09:56)
[2024-11-14 10:01] LABS: BASO % 0.4 % (0.0-1.0); EOS # 0.1 10^3/uL (0.0-0.5); EOS % 0.6 % (0.0-3.0); HEMATOCRIT 35.6 % (36.0-47.0); HEMOGLOBIN 11.3 g/dl (12.0-15.5); LYMPH % 27.8 % (24.0-44.0); MEAN CORPUSCULAR HEMOGLOBIN 26.8 pg (27.0-33.0); MEAN CORPUSCULAR HGB CONC 31.7 g/dl (32.0-36.5); MEAN CORPUSCULAR VOLUME 84.4 fl (80.0-96.0); MONO # 1.2 10^3/uL (0.0-0.8); MONO % 11.3 % (2.0-8.0); NEUTROPHILS # 6.5 10^3/uL (1.5-8.5); NEUTROPHILS % 59.4 % (36.0-66.0); PLATELET COUNT, AUTOMATED 261 10^3/uL (150-450); RED BLOOD COUNT 4.22 10^6/uL (4.00-5.40); WHITE BLOOD COUNT 10.9 10^3/uL (4.0-10.0)
[2024-11-14 10:28] LABS: C REACTIVE PROTEIN QUANTITATIV 7.53 MG/DL (<1.0); CALCIUM LEVEL 8.6 MG/DL (8.3-10.6); CREATININE FOR GFR 0.99 MG/DL (0.55-1.30); GLOMERULAR FILTRATION RATE 59.5 (>39); POTASSIUM SERUM 3.8 MMOL/L (3.5-5.1)
[2024-11-14 10:35] LABS: PROCALCITONIN 0.16 ng/ml
[2024-11-14] MEDS ORDERED: VIBE75TA PO (11:26)
[2024-11-14] MEDS ORDERED: HOME MED LIST COMPLETE! XX SCH (11:30)
[2024-11-14 12:00] VITALS: BP 115/56; TEMP 97.9; O2SAT 91
[2024-11-14] MEDS: PANTOPRAZOLE 40MG TAB (PROTONIX) PO SCH (12:57)
[2024-11-14] MEDS: ENOXAPARIN 40MG/0.4ML SYRINGE (J1650 PER 10MG) SC SCH (12:57)
[2024-11-14] MEDS: INSULIN LISPRO (NovoLOG) PER UNIT SC SCH ×3 (12:57→21:00)
[2024-11-14] MEDS: ACETAMINOPHEN 325 MG TAB PO PRN (14:32)
[2024-11-14] MEDS: PIPERACILLIN/TAZOBACTAM SOD 3.375 GM in DEXTROSE 5% (D5W) ADV/MINI-BAG 50 ML IV SCH (15:39)
[2024-11-14] MEDS: LEVOTHYROXINE 75MCG TABLET (0.075MG) PO SCH (15:39)
[2024-11-14] MEDS: ROSUVASTATIN 10 MG TAB (CRESTOR) PO SCH (20:13)
[2024-11-14] MEDS: buPROPion **SR TABLET** (ZYBAN) 150MG PO SCH (20:15)
[2024-11-14 20:30] VITALS: BP 152/73; TEMP 97.9; O2SAT 93
[2024-11-15 04:45] VITALS: BP 148/69; TEMP 97.5; O2SAT 92
[2024-11-15 06:27] LABS: BASO # 0.1 10^3/uL (0.0-0.2); BASO % 0.8 % (0.0-1.0); EOS # 0.3 10^3/uL (0.0-0.5); EOS % 3.9 % (0.0-3.0); HEMATOCRIT 35.5 % (36.0-47.0); HEMOGLOBIN 10.9 g/dl (12.0-15.5); LYMPH # 2.2 10^3/uL (1.5-5.0); LYMPH % 29.7 % (24.0-44.0); MEAN CORPUSCULAR HEMOGLOBIN 26.1 pg (27.0-33.0); MEAN CORPUSCULAR HGB CONC 30.7 g/dl (32.0-36.5); MEAN CORPUSCULAR VOLUME 85.1 fl (80.0-96.0); MONO # 0.9 10^3/uL (0.0-0.8); MONO % 12.1 % (2.0-8.0); NEUTROPHILS # 3.9 10^3/uL (1.5-8.5); PLATELET COUNT, AUTOMATED 262 10^3/uL (150-450); RED BLOOD COUNT 4.17 10^6/uL (4.00-5.40); WHITE BLOOD COUNT 7.4 10^3/uL (4.0-10.0)
[2024-11-15 06:34] LABS: C REACTIVE PROTEIN QUANTITATIV 4.58 MG/DL (<1.0)
[2024-11-15 06:35] LABS: CALCIUM LEVEL 8.8 MG/DL (8.3-10.6); CREATININE FOR GFR 0.88 MG/DL (0.55-1.30); GLOMERULAR FILTRATION RATE 68.5 (>39); POTASSIUM SERUM 3.8 MMOL/L (3.5-5.1)
[2024-11-15] MEDS: MOM 30ML SUSPENSION UDC PO PRN (08:16)
[2024-11-15] MEDS: TAMSULOSIN 0.4 MG CAP PO SCH (08:17)
[2024-11-15] MEDS ORDERED: IBUPROFEN 400MG TAB PO PRN (10:30)
[2024-11-15 12:00] VITALS: BP 148/83; TEMP 98.6; O2SAT 94
[2024-11-15 20:00] VITALS: BP 150/80; TEMP 98.6; O2SAT 93
[2024-11-15] MEDS: ASPIRIN 81MG ENTERIC TABLET PO SCH (20:47)
[2024-11-16 04:00] VITALS: BP 130/80; TEMP 98.7; O2SAT 93
[2024-11-16 05:42] LABS: BASO # 0.1 10^3/uL (0.0-0.2); BASO % 0.7 % (0.0-1.0); EOS # 0.3 10^3/uL (0.0-0.5); EOS % 4.5 % (0.0-3.0); HEMATOCRIT 36.4 % (36.0-47.0); HEMOGLOBIN 11.5 g/dl (12.0-15.5); LYMPH # 2.3 10^3/uL (1.5-5.0); LYMPH % 31.9 % (24.0-44.0); MEAN CORPUSCULAR HEMOGLOBIN 26.9 pg (27.0-33.0); MEAN CORPUSCULAR HGB CONC 31.6 g/dl (32.0-36.5); MONO # 0.9 10^3/uL (0.0-0.8); MONO % 11.6 % (2.0-8.0); NEUTROPHILS # 3.7 10^3/uL (1.5-8.5); NEUTROPHILS % 50.9 % (36.0-66.0); PLATELET COUNT, AUTOMATED 272 10^3/uL (150-450); RED BLOOD COUNT 4.28 10^6/uL (4.00-5.40); WHITE BLOOD COUNT 7.3 10^3/uL (4.0-10.0)
[2024-11-16 06:09] LABS: C REACTIVE PROTEIN QUANTITATIV 2.66 MG/DL (<1.0)
[2024-11-16 06:10] LABS: CALCIUM LEVEL 8.8 MG/DL (8.3-10.6); CREATININE FOR GFR 0.77 MG/DL (0.55-1.30); GLOMERULAR FILTRATION RATE 80.4 (>39); MAGNESIUM LEVEL 2.2 MG/DL (1.8-2.4); POTASSIUM SERUM 3.8 MMOL/L (3.5-5.1)
[2024-11-16 08:08] VITALS: BP 164/82
[2024-11-16 09:42] VITALS: O2SAT 97
[2024-11-16] MEDS ORDERED: LEVO1TAB40 PO (10:33)
[2024-11-16] MEDS ORDERED: TAMS1CAP17 PO (10:33)
[2024-11-16 12:00] VITALS: BP 169/65; TEMP 97.5; O2SAT 99
== END 2024-11-16 15:27 | disposition home or self-care (01) ==
LOC: M ED 02:59 → M ED INP 08:34 → INTOOBSV 08:34 → M MSPAV 09:47
PROVIDERS: ADMIT Student in an Organized Health Care Education/Training Program; ATTEND Student in an Organized Health Care Education/Training Program
DX: R10.31 Right lower quadrant pain (principal); N20.1 Calculus of ureter; N13.30 Unspecified hydronephrosis; K57.30 Diverticulosis of large intestine without perforation or abscess without bleeding; K64.8 Other hemorrhoids; R09.02 Hypoxemia; I25.10 Atherosclerotic heart disease of native coronary artery without angina pectoris; I25.2 Old myocardial infarction; I10 Essential (primary) hypertension; E78.5 Hyperlipidemia, unspecified; E11.9 Type 2 diabetes mellitus without complications; E03.9 Hypothyroidism, unspecified; K21.9 Gastro-esophageal reflux disease without esophagitis; F32.A Depression, unspecified; Z87.442 Personal history of urinary calculi; Z96.0 Presence of urogenital implants; R32 Unspecified urinary incontinence; K76.0 Fatty (change of) liver, not elsewhere classified; G47.33 Obstructive sleep apnea (adult) (pediatric); Z91.198 Patient's noncompliance with other medical treatment and regimen for other reason; Z90.79 Acquired absence of other genital organ(s); Z90.89 Acquired absence of other organs; Z95.5 Presence of coronary angioplasty implant and graft; Z88.8 Allergy status to other drugs, medicaments and biological substances; Z79.899 Other long term (current) drug therapy; Z79.82 Long term (current) use of aspirin; Z79.890 Hormone replacement therapy; Z79.84 Long term (current) use of oral hypoglycemic drugs
CPT/HCPCS: 36415; 71045; 74176; 80048; 80076; 81001; 82270; 83605; 83690; 83735; 84145; 85025; 86140; 87086; 93005; 96365; 96366; 96372; 96375; 96376; 99285; G0378; J1650; J1815; J1885; J2405; J2543

== ENCOUNTER → 2024-12-14 | Outpatient (REF) | payer OTHER ==
[~2024-12-14] MED LIST changes: +LEVO1TAB40 PO; +TAMS1CAP17 PO; +VIBE75TA PO
[2024-12-14 14:14] LABS: BASO # 0.1 10^3/uL (0.0-0.2); BASO % 0.8 % (0.0-1.0); EOS # 0.3 10^3/uL (0.0-0.5); EOS % 3.5 % (0.0-3.0); HEMATOCRIT 40.1 % (36.0-47.0); HEMOGLOBIN 12.3 g/dl (12.0-15.5); LYMPH # 3.1 10^3/uL (1.5-5.0); LYMPH % 36.2 % (24.0-44.0); MEAN CORPUSCULAR HEMOGLOBIN 26.5 pg (27.0-33.0); MEAN CORPUSCULAR HGB CONC 30.7 g/dl (32.0-36.5); MEAN CORPUSCULAR VOLUME 86.2 fl (80.0-96.0); MONO # 0.9 10^3/uL (0.0-0.8); MONO % 10.9 % (2.0-8.0); NEUTROPHILS # 4.1 10^3/uL (1.5-8.5); NEUTROPHILS % 48.3 % (36.0-66.0); PLATELET COUNT, AUTOMATED 240 10^3/uL (150-450); RED BLOOD COUNT 4.65 10^6/uL (4.00-5.40); WHITE BLOOD COUNT 8.6 10^3/uL (4.0-10.0)
[2024-12-14 14:23] LABS: ALBUMIN 3.6 G/DL (3.2-5.2); ALKALINE PHOSPHATASE 89 U/L (35-104); ALT/SGPT 33 U/L (7.0-40); AST/SGOT 27 U/L (<34); BILIRUBIN,TOTAL 0.4 MG/DL (0.3-1.2); BLOOD UREA NITROGEN 18 MG/DL (9-23); CALCIUM LEVEL 9.7 MG/DL (8.3-10.6); CARBON DIOXIDE LEVEL 29 MMOL/L (20-31); CHLORIDE LEVEL 105 MMOL/L (98-107); CHOLESTEROL LEVEL 127 MG/DL (<200); CHOLESTEROL RISK RATIO 2.58 (<5); CREATININE FOR GFR 0.66 MG/DL (0.55-1.30); GLOMERULAR FILTRATION RATE > 90.0 (>39); GLUCOSE, FASTING 143 MG/DL (74-106); HDL CHOLESTEROL 49.2 MG/DL (>40); LDL CHOLESTEROL 52.6 MG/DL (<100); NON-HDL-C 77.8 MG/DL; POTASSIUM SERUM 4.7 MMOL/L (3.5-5.1); SODIUM LEVEL 143 MMOL/L (136-145); THYROID STIMULATING HORMONE 2.874 uIU/ML (0.55-4.78); TOTAL PROTEIN 6.7 G/DL (5.7-8.2); TRIGLYCERIDES LEVEL 126 MG/DL (<150); VITAMIN B12 LEVEL 297 PG/ML (211-911)
[2024-12-14 14:27] LABS: HEMOGLOBIN A1c 7.6 % (4.0-6.0)
== END ==
LOC: M SFHCADAM 09:03
PROVIDERS: ATTEND Physician Assistant Medical
DX: I25.10 Atherosclerotic heart disease of native coronary artery without angina pectoris (principal); E03.9 Hypothyroidism, unspecified; E11.9 Type 2 diabetes mellitus without complications; K76.0 Fatty (change of) liver, not elsewhere classified; R32 Unspecified urinary incontinence; E53.8 Deficiency of other specified B group vitamins

== ENCOUNTER → 2024-12-15 | Outpatient (REF) | payer OTHER ==
[2024-12-15 18:25] LABS: CREATININE, URINE 164.7 MG/DL
== END ==
LOC: M SFHCADAM 16:49
PROVIDERS: ATTEND Physician Assistant Medical
DX: I25.10 Atherosclerotic heart disease of native coronary artery without angina pectoris (principal); E03.9 Hypothyroidism, unspecified; E11.9 Type 2 diabetes mellitus without complications; K76.0 Fatty (change of) liver, not elsewhere classified; R32 Unspecified urinary incontinence

== ENCOUNTER → 2025-05-05 | Outpatient (CLI) | payer OTHER ==
[~2025-05-05] MED LIST changes: +JANU100T PO; +MYRB50TA PO
== END ==
LOC: M RAD 14:53
PROVIDERS: ATTEND Student in an Organized Health Care Education/Training Program
DX: M25.532 Pain in left wrist (principal); Z48.811 Encounter for surgical aftercare following surgery on the nervous system; M79.642 Pain in left hand; R93.6 Abnormal findings on diagnostic imaging of limbs

== ENCOUNTER 2025-05-21 12:21 | Emergency (ER) | payer OTHER ==
[~2025-05-21] VITALS: Ht 165.1 cm; Wt 95.6 kg
[2025-05-21 14:18] LABS: BASO # 0.1 10^3/uL (0.0-0.2); BASO % 0.7 % (0.0-1.0); EOS # 0.2 10^3/uL (0.0-0.5); EOS % 1.8 % (0.0-3.0); LYMPH # 2.9 10^3/uL (1.5-5.0); LYMPH % 35.1 % (24.0-44.0); MONO # 0.9 10^3/uL (0.0-0.8); MONO % 10.6 % (2.0-8.0); NEUTROPHILS # 4.2 10^3/uL (1.5-8.5); NEUTROPHILS % 51.4 % (36.0-66.0); PLATELET COUNT, AUTOMATED 324 10^3/uL (150-450)
[2025-05-21 14:34] LABS: INR 0.95
[2025-05-21 14:44] LABS: ALT/SGPT 59.0 U/L (7.0-40); AST/SGOT 52.0 U/L (<34); CALCIUM LEVEL 9.4 MG/DL (8.3-10.6); CARBON DIOXIDE LEVEL 26.0 MMOL/L (20-31); CHLORIDE LEVEL 107.0 MMOL/L (98-107); CREATININE FOR GFR 0.76 MG/DL (0.55-1.30); GLOMERULAR FILTRATION RATE 81.2 (>39); POTASSIUM SERUM 3.9 MMOL/L (3.5-5.1); SODIUM LEVEL 145.0 MMOL/L (136-145)
[2025-05-21 18:48] LABS: KETONE, URINE AUTO RFX NEGATIVE (NEGATIVE); LEUKOCYTE ESTERASE UR AUTO RFX NEGATIVE (NEGATIVE); MUCUS, URINE RFX SMALL (NEGATIVE); NITRITE, URINE AUTO RFX NEGATIVE (NEGATIVE); RBC, URINE AUTO RFX 1 /HPF (0-3); SQUAM EPITHELIAL CELL UR AURFX 0 /HPF (0-6); WBC, URINE AUTO RFX 1 /HPF (0-3)
[2025-05-21 20:01] VITALS: BP 188/84; TEMP 98.2
[2025-05-21] MEDS: ACETAMINOPHEN *IV* 1,000 MG in IV 1 EA IV ONE (20:03)
[2025-05-21] MEDS: CIPROFLOXACIN 500 MG TABLET PO ONE (20:03)
[2025-05-21 20:06] VITALS: O2SAT 95
== END 2025-05-21 20:25 | disposition home or self-care (01) ==
LOC: M ED 12:21
DX: K57.30 Diverticulosis of large intestine without perforation or abscess without bleeding (principal); M54.50 Low back pain, unspecified; N20.0 Calculus of kidney; I25.10 Atherosclerotic heart disease of native coronary artery without angina pectoris; E11.9 Type 2 diabetes mellitus without complications; I10 Essential (primary) hypertension; E03.9 Hypothyroidism, unspecified; E78.5 Hyperlipidemia, unspecified; G47.33 Obstructive sleep apnea (adult) (pediatric); G43.909 Migraine, unspecified, not intractable, without status migrainosus; Z95.5 Presence of coronary angioplasty implant and graft; Z79.82 Long term (current) use of aspirin; Z79.84 Long term (current) use of oral hypoglycemic drugs; Z79.899 Other long term (current) drug therapy; Z88.8 Allergy status to other drugs, medicaments and biological substances
CPT/HCPCS: 71045; 72131; 74177; 80048; 80076; 81001; 83605; 83690; 85025; 85384; 85610; 85730; 86850; 86900; 86901; 93005; 96365; 99285; J0131

== ENCOUNTER → 2025-05-27 | Outpatient (REF) | payer OTHER ==
[2025-05-27 14:20] LABS: ALT/SGPT 49.0 U/L (7.0-40); AST/SGOT 40.0 U/L (<34); CALCIUM LEVEL 9.4 MG/DL (8.3-10.6); CARBON DIOXIDE LEVEL 27.0 MMOL/L (20-31); CHLORIDE LEVEL 108.0 MMOL/L (98-107); CHOLESTEROL LEVEL 94.0 MG/DL (<200); CHOLESTEROL RISK RATIO 2.11 (<5); CREATININE FOR GFR 0.71 MG/DL (0.55-1.30); GLOMERULAR FILTRATION RATE 88.1 (>39); LDL CHOLESTEROL 25.5 MG/DL (<100); NON-HDL-C 49.5 MG/DL; POTASSIUM SERUM 4.0 MMOL/L (3.5-5.1); SODIUM LEVEL 147.0 MMOL/L (136-145); TRIGLYCERIDES LEVEL 120.0 MG/DL (<150)
[2025-05-27 14:24] LABS: FREE T4 1.43 NG/DL (0.89-1.76)
[2025-05-27 14:25] LABS: TOTAL 25(OH) VITAMIN D 28.6 NG/ML (20.0-100.0)
[2025-05-27 14:34] LABS: ESTIMATED AVERAGE GLUCOSE 163.0 MG/DL (60-110)
== END ==
LOC: M SFHCADAM 09:09
PROVIDERS: ATTEND Physician Assistant Medical
DX: E11.9 Type 2 diabetes mellitus without complications (principal); I25.10 Atherosclerotic heart disease of native coronary artery without angina pectoris; K21.9 Gastro-esophageal reflux disease without esophagitis; E03.9 Hypothyroidism, unspecified; E55.9 Vitamin D deficiency, unspecified